=== PATIENT | male | born 1955 | race Caucasian/White ===

== ENCOUNTER 2022-06-15 14:48 | Outpatient (CLI) | payer MEDICARE, SELFPAY ==
[2022-06-15 16:03] LABS: Prostate Specific Antigen 1.5 ng/mL (< OR = 4.0)
== END 2022-06-15 14:49 | disposition home or self-care (01) ==
LOC: ANHLAB 14:58
PROVIDERS: PCP Hospitalist; Visit Provider Radiology Radiation Oncology
DX: Z85.46 Personal history of malignant neoplasm of prostate (principal)
CPT/HCPCS: 36415; 84153

== ENCOUNTER 2023-10-25 07:52 | Outpatient (CLI) | payer MEDICARE, SELFPAY ==
[2023-10-25 08:46] LABS: Basophils Absolute Auto 0.1 K/mm3 (0.0-0.1); Basophils Percent Auto 0.8 % (0.2-1.2); Eosinophils Absolute Auto 0.1 K/mm3 (0-0.3); Eosinophils Percent Auto 2.1 % (0-4.4); Hematocrit 43.6 % (42.0-52.0); Hemoglobin 14.3 g/dL (14.0-18.0); Immature Granulocyte Absolute 0.02 K/mm3 (0.00-0.031); Immature Granulocyte Percent A 0.3 % (0-0.5); Lymphocytes Percent Auto 22.9 % (18.3-44.2); Mean Corpuscular HGB Conc 32.8 g/dl (32-36); Mean Corpuscular Hemoglobin 28.4 pg (26-34); Mean Corpuscular Volume 86.7 fl (80-100); Mean Platelet Volume 9.9 fl (7.4-10.4); Monocytes Absolute Auto 0.6 K/mm3 (0.1-0.6); Monocytes Percent Auto 9.8 % (2.6-8.5); Neutrophils Absolute Auto 3.9 K/mm3 (1.3-6.7); Neutrophils Percent Auto 64.1 % (45.5-73.1); Platelet Count Result 299 k/mm3 (150-375); Red Blood Count 5.03 M/mm3 (4.6-6.20); Red Cell Distribution Width 13.7 % (11.5-14.5); White Blood Count 6.1 K/mm3 (4.5-10.0)
[2023-10-25 09:00] LABS: Alanine Aminotransferase 14 U/L (6-50); Albumin Level 4.2 g/dL (3.5-5.1); Alkaline Phosphatase 67 U/L (38-126); Anion Gap 7 mmol/L (4-12); Aspartate Amino Transferase 31 U/L (17-59); Bilirubin,Total 0.6 mg/dL (0.2-1.3); Blood Urea Nitrogen 17 mg/dL (9-20); Calcium 9.1 mg/dL (8.4-10.2); Carbon Dioxide 25 mmol/L (22-30); Chloride 107 mmol/L (98-107); Cholesterol 209 mg/dL (0-200); Estimated Glomerular Filt Rate > 60; Glucose 92 mg/dL (65-110); HDL Direct 36 mg/dL; Potassium 4.1 mmol/L (3.4-5.0); Sodium 139 mmol/L (137-145); Triglycerides 73 mg/dL (<150)
[2023-10-25 09:11] LABS: LDL Cholesterol Direct 146 mg/dL
[2023-10-25 09:30] LABS: Prostate Specific Antigen 0.9 ng/mL (< OR = 4.0)
[2023-10-28 12:53] LABS: TSH QUEST 1.91 mIU/L (0.40-4.50)
== END 2023-10-25 07:53 | disposition home or self-care (01) ==
PROVIDERS: PCP Family Medicine Sports Medicine; Visit Provider Family Medicine Sports Medicine
DX: E78.5 Hyperlipidemia, unspecified (principal); K62.7 Radiation proctitis; Z85.46 Personal history of malignant neoplasm of prostate
CPT/HCPCS: 36415; 80053; 80061; 84153; 84481; 85025; 86376

== ENCOUNTER 2024-03-30 07:04 | Outpatient (CLI) | payer MEDICARE, SELFPAY ==
[2024-03-30 08:27] LABS: Prostate Specific Antigen 0.9 ng/mL (< OR = 4.0)
== END 2024-03-30 07:05 | disposition home or self-care (01) ==
PROVIDERS: PCP Family Medicine Sports Medicine; Visit Provider Radiology Radiation Oncology
DX: Z85.46 Personal history of malignant neoplasm of prostate (principal)
CPT/HCPCS: 36415; 84153

== ENCOUNTER 2024-08-11 11:26 | Outpatient (CLI) | payer MEDICARE, SELFPAY ==
--- OUTSIDE RECORDS SUMMARY | 2024-08-11 12:09 | XMS_ITS | Referral Summary ---
Author Organization [facility] Address [address] [facility] [place] [address] Care Team Providers Care Credit Director Name Role Phone Bella Chopra MD Primary Care Provider Source Comments [facility],non-owned Affiliates and Associated Physician Practices is amultiple site organization consisting of ambulatory clinics and hospital sitesin [place], [place] and [place]. This disclosure is being madepursuant to the Care Everywhere program and may not contain all information available regarding this patient. Last updated 18.[facility] Encounters Date Type Department Care Team Description 07/23/2024 Travel 07/23/2024 10:00 AM SURGICAL SERVICES ASSISTANT Office Visit [facility] Medical [facility] - Family Medicine [address] [phone] Bella Chopra MD Medicare annual wellness visit, subsequent (Primary Dx); Healthcare maintenance; Right inguinal hernia; Elevated BP without diagnosis of hypertension; History of prostate cancer from Last 3 Months Allergies No known active allergies Medications * Be aware that medications may not be up to date on this document. Alwaysverify current medications with the patient. Medication Sig Dispensed Refills Start Date End Date Status calcium polycarbophil (Fibercon) 625 MG tablet Take 1 (one) tablet by mouth Chase Active triamcinolone acetonide (Kenalog) 0.1 % cream Apply to affected area 2 times daily 06/22/2024 Active Active Problems Problem Noted Date Diagnosed Date Adverse effect of radiation 07/23/2024 Malignant neoplasm of prostate 07/23/2024 Anal itching 04/08/2024 Right groin pain 04/08/2024 Dyslipidemia 11/05/2022 Chronic radiation proctitis 06/21/2022 Overview (07/23/2024): Occasional bright red blood mixed in with stool, not progressive. History of hormone therapy 12/20/2021 Overview (07/23/2024): Short-term ADT with leuprolide 45 mg injection February 2014. History of therapeutic radiation 10/20/2018 Overview (07/23/2024): Prostate only radiotherapy, 79.20 Gy in 44 fractions, from 03/03/2014 thru 05/04/2014. 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 (FLUCELVAX QUADRIVALENT; 6MO+) (CCIIV4) 07/09/2019,05/12/2017 INFLUENZA VACCINE, HIGH-DOSE , QUADR. (FLUZONE HIGH-DOSE QUADRIVALENT; 65Y+), 0.7 ML (HD-IIV4) 04/12/2023,03/29/2022 INFLUENZA VACCINE, HIGH-DOSE , TRIV. (FLUZONE HIGH-DOSE TRIVALENT; 65Y+) (HD-IIV3) 04/28/2024 INFLUENZA VACCINE, QUADR. (F LUZONE; FLULAVAL; FLUARIX; AFLURIA QUADRIVALENT; 6MO+), 0.5 ML (IIV4) 04/27/2021,04/11/2020,03/31/2018,2015 INFLUENZA VACCINE, TRIV. (FL UZONE; FLULAVAL; FLUARIX; AFLURIA TRIVALENT; 6MO+), 0.5 ML (IIV3) 04/10/2015 PNEUMOCOCCAL PCV20 CONJ VAC IM 07/23/2022 RSV AREXVY 60YR+ 0.5ML 05/02/2023 TDAP (7yrs+) 06/07/2008 TDAP, HISTORIC VACCINE 04/12/2023,05/05/2020 ZOSTER VACCINE, LIVE 01/21/2017 Zoster Hzv Vacc Recombinant Inj Im 04/21/2018, Social History Tobacco Use Types Packs/Day Years Used Date Smoking Tobacco: Never Smokeless Tobacco: Never Tobacco Cessation:Counseling Given: No Alcohol Use Standard Drinks/Week Comments Yes 0 (1 standard drink = 0.6 oz pur e alcohol) less then 10 beers a year PHQ-2 Answer Date Recorded Patient Health Questionnaire-2 Score 0 07/23/2024 Sex and Gender Information Value Date Recorded Sex Assigned at Not on file Gender Identity Not on file Sexual Orientation Not on file Last Filed Vital Signs Vital Sign Reading Time Taken Comments Blood Pressure 128/86 07/23/2024 12:54 PM SURGICAL SERVICES ASSISTANT Pulse 82 07/23/2024 10:23 AM SURGICAL SERVICES ASSISTANT Temperature 36.3 ??C (97.3 ??F) 07/23/2024 10:[address] Respiratory Rate - - Oxygen Saturation 98% 07/23/2024 10:23 AM SURGICAL SERVICES ASSISTANT Inhaled Oxygen Concentration - - Weight 72.3 kg (159 lb 6.4 oz) 07/23/2024 10:23 AM SURGICAL SERVICES ASSISTANT Height 175.3 cm (5' 9 ) 07/23/2024 10:23 AM SURGICAL SERVICES ASSISTANT Body Mass Index 23.54 07/23/2024 10:23 AM SURGICAL SERVICES ASSISTANT Plan of Treatment Upcoming Encounters Date Type Department Care Team (Late st Contact Info) Description 07/26/2025 7:20 AM SURGICAL SERVICES ASSISTANT Office Visit [facility] Medical [facility] - Family Medicine [address] [phone] Bella Chopra MD [address] [place] [address] Procedures Procedure Name Priority Date/Time Associated Diagnosis Comments HEPATITIS C ANTIBODY W RFLX PCR Routine 08/03/2024 9:30 AM SURGICAL SERVICES ASSISTANT Healthcare maintenance TSH REFLEX FREE T4 Routine 08/03/2024 9: 30 AM SURGICAL SERVICES ASSISTANT Healthcare maintenance Elevated BP without diagnosis of hypertension LIPID PROFILE Routine 08/03/2024 9:30 AM SURGICAL SERVICES ASSISTANT Healthcare maintenance Elevated BP without diagnosis of hypertension COMPREHENSIVE METABOLIC PANEL Routine 08/03/2024 9:30 AM SURGICAL SERVICES ASSISTANT Healthcare maintenance Elevated BP without diagnosis of hypertension CBC W AUTO DIFFERENTIAL Routine 08/03/2024 9:30 AM SURGICAL SERVICES ASSISTANT Healthcare maintenance Elevated BP without diagnosis of hypertension from Last 3 Months Results * HEPATITIS C ANTIBODY W RFLX PCR (08/03/2024 9:30 AM SURGICAL SERVICES ASSISTANT) Hepatitis C Antibody Non Reactive Non Reactive [facility] INSURANCE BILL Comment: Performed at: ??01 - [address] ??[id number] Wireless Consultant: Tunde Carlson PhD, Phone: ??[phone] Interpretation Comment [facility] INSURANCE BILL Comment: Not infected with HCV unless early or acute infection is suspected (which may be delayed in an immunocompromised individual), or other evidence exists to indicate HCV infection. Blood BLOOD SPECIMEN / Unknown 08/03/2024 9:30 AM SURGICAL SERVICES ASSISTANT 08/03/2024 Narrative [facility] INSURANCE BILL - 08/04/2024 6:09 AM SURGICAL SERVICES ASSISTANT Performed at: ??[address] ??[id number] Wireless Consultant: Tunde Carlson PhD, Phone: ??[phone] Bella Chopra MD LAB - CHEMISTRY ORDERABLES [facility] INSURANCE BILL [address] [place] [address] * TSH REFLEX FREE T4 (08/03/2024 9:30 AM SURGICAL SERVICES ASSISTANT) TSH 2.080 0.450 - 4.500 uIU/mL [facility] INSURANCE BILL Blood BLOOD SPECIMEN / Unknown 08/03/2024 9:30 AM SURGICAL SERVICES ASSISTANT 08/03/2024 Narrative [facility] INSURANCE BILL - 08/04/2024 6:09 AM SURGICAL SERVICES ASSISTANT Performed at: ??01 - [facility] [place] [address] [place], [place] ??[id number] Wireless Consultant: Tunde Carlson PhD, Phone: ??[phone] Bella Chopra MD LAB - CHEMISTRY ORDERABLES [facility] INSURANCE BILL [address] [place] [address] * CBC WITH DIFFERENTIAL (08/03/2024 9:30 AM SURGICAL SERVICES ASSISTANT) WBC 7.2 3.4 - 10.8 x10E3/uL [facility] INSURANCE BILL RBC 5.24 4.14 - 5.80 x10E6/uL [facility] INSURANCE BILL Hemoglobin 14.4 13.0 - 17.7 g/dL [facility] INSURANCE BILL Hematocrit 44.7 37.5 - 51.0 % [facility] INSURANCE BILL MCV 85 79 - 97 fL [facility] INSURANCE BILL MCH 27.5 26.6 - 33.0 pg [facility] INSURANCE BILL MCHC 32.2 31.5 - 35.7 g/dL [facility] INSURANCE BILL RDW 14.0 11.6 - 15.4 % [facility] INSURANCE BILL Platelet Count 362 150 - 450 x10E3/uL [facility] INSURANCE BILL Granulocytes % 72 Not Estab. % [facility] INSURANCE BILL Lymphocytes % 18 Not Estab. % [facility] INSURANCE BILL Monocytes % 8 Not Estab. % [facility] INSURANCE BILL Eosinophils % 1 Not Estab. % [facility] INSURANCE BILL Basophils % 1 Not Estab. % [facility] INSURANCE BILL Granulocytes Absolute 5.1 1.4 - 7.0 x10E3/uL [facility] INSURANCE BILL Lymphocytes Absolute 1.3 0.7 - 3.1 x10E3/uL [facility] INSURANCE BILL Monocytes Absolute 0.6 0.1 - 0.9 x10E3/uL [facility] INSURANCE BILL Eosinophils Absolute 0.1 0.0 - 0.4 x10E3/uL [facility] INSURANCE BILL Basophils Absolute 0.0 0.0 - 0.2 x10E3/uL [facility] INSURANCE BILL Immature Granulocytes 0 Not Estab. % [facility] INSURANCE BILL Immature Granulocytes Absolute 0.0 0.0 - 0.1 x10E3/uL [facility] INSURANCE BILL Blood BLOOD SPECIMEN / Unknown 08/03/2024 9:30 AM SURGICAL SERVICES ASSISTANT 08/03/2024 Narrative [facility] INSURANCE BILL - 08/04/2024 12:06 AM SURGICAL SERVICES ASSISTANT Performed at: ??01 - [facility] [address] [facility], [place], [place] ??[id number] Wireless Consultant: Tunde Carlson PhD, Phone: ??[phone] Bella Chopra MD LAB - HEMATOLOG Y ORDERABLES [facility] INSURANCE BILL [address] [place] [address] * COMPREHENSIVE METABOLIC PANEL (08/03/2024 9:30 AM SURGICAL SERVICES ASSISTANT) Glucose 89 70 - 99 mg/dL [facility] INSURANCE BILL BUN 15 8 - 27 mg/dL [facility] INSURANCE BILL Creatinine 0.88 0.76 - 1.27 mg/dL [facility] INSURANCE BILL eGFR by CKD-EPI 94 >59 mL/min/1.7 3 [facility] INSURANCE BILL BUN/Creatinine Ratio 17 10 - 24 [facility] INSURANCE BILL Sodium 140 134 - 144 mmol/L [facility] INSURANCE BILL Potassium 4.6 3.5 - 5.2 mmol/L [facility] INSURANCE BILL Chloride 104 96 - 106 mmol/L [facility] INSURANCE BILL CO2 24 20 - 29 mmol/L [facility] INSURANCE BILL Calcium 9.1 8.6 - 10.2 mg/dL [facility] INSURANCE BILL Protein Total 6.9 6.0 - 8.5 g/dL [facility] INSURANCE BILL Albumin 4.2 3.9 - 4.9 g/dL [facility] INSURANCE BILL Globulin Total 2.7 1.5 - 4.5 g/dL [facility] INSURANCE BILL Bilirubin Total 0.4 0.0 - 1.2 mg/dL [facility] INSURANCE BILL Alkaline Phosphatase 74 44 - 121 IU/L [facility] INSURANCE BILL AST 19 0 - 40 IU/L [facility] INSURANCE BILL ALT 11 0 - 44 IU/L [facility] INSURANCE BILL Blood BLOOD SPECIMEN / Unknown 08/03/2024 9:30 AM SURGICAL SERVICES ASSISTANT 08/03/2024 Narrative [facility] INSURANCE BILL - 08/04/2024 6:09 AM SURGICAL SERVICES ASSISTANT Performed at: ??01 - [facility] [address] ??[id number] Wireless Consultant: Tunde Carlson PhD, Phone: ??[phone] Bella Chopra MD LAB - CHEMISTRY ORDERABLES Performing Organization Address City/[facility] Co de Phone Number [facility] INSURANCE BILL [address] [place] [address] * (ABNORMAL) LIPID PROFILE (08/03/2024 9:30 AM SURGICAL SERVICES ASSISTANT) Cholesterol 193 100 - 199 mg/dL [facility] INSURANCE BILL Triglycerides 57 0 - 149 mg/dL [facility] INSURANCE BILL HDL Cholesterol 44 >39 mg/dL [facility] INSURANCE BILL VLDL Calculated 11 5 - 40 mg/dL [facility] INSURANCE BILL LDL Calculated 138(H) 0 - 99 mg/dL [facility] INSURANCE BILL Blood BLOOD SPECIMEN / Unknown 08/03/2024 9:30 AM SURGICAL SERVICES ASSISTANT 08/03/2024 Narrative [facility] INSURANCE BILL - 08/04/2024 6:09 AM SURGICAL SERVICES ASSISTANT Performed at: ??01 - [facility] [address] ??[id number] Wireless Consultant: Tunde Carlson PhD, Phone: ??[phone] Bella Chopra MD LAB - CHEMISTRY ORDERABLES Performing Organization Address City/[facility] Co de Phone Number [facility] INSURANCE BILL [address] [place] [address] from Last 3 Months Care Teams Credit Director Relationship Specialty Start Date End Date Bella Chopra MD [address] [place] [address] PCP - General Internal Medicine 07/23/24
--- OUTSIDE RECORDS SUMMARY | 2024-08-11 12:09 | XMS_ITS | Referral Summary ---
Author Organization [facility] Address [address] [place] [address] Care Team Providers Care Red Cap Name Role Phone Maricel Saucedo MD Primary Care Provider Alicia DUBON MD, Bernardo Edmond Unavailable + Encounters Date Type Department Care Team Description 06/22/2024 5:15 PM FLIGHT STEWARD Office Visit [facility] at [address] [phone] Alesha Stevens NP Rash and nonspecific skin eruption (Primary Dx); Right groin pain from Last 3 Months Allergies No known active allergies Medications erythromycin (ILOTYCIN) ophthalmic ointmentIndicat ions:Hordeolum externum of left lower eyelid Apply to left eye 2 (two) times a day For 1 week as needed for recurrent stye. To eye lid margin 3.5 g 1 4 Active Additional Information Patient not taking.Reported on 06/22/2024 triamcinolone (KENALOG) 0.1 % creamIndication s:skin rash Apply topically 2 (two) times a day for 10 days 30 g 4 Active Active Problems Problem Noted Date Diagnosed Date Dyslipidemia 11/05/2022 Assessment & Plan (11/05/2022 5:08 PM CDT): Most recent LDL was near optimal; patient not currently taking any statin therapy Recheck lipids today; if within normal limits, continue to encourage low-fat high-fiber diet Chronic radiation proctitis 06/21/2022 05/0 07/2022 Overview (11/05/2022): Occasional bright red blood mixed in with stool, not progressive. 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 Fluoxetine and BuSpar as previously prescribed. Pt does not desire changing medications D/T transient dizziness with anxiety, I would like to give the medication little bit more time to verify effectiveness. RTC as scheduled next month and call in the interim with any additional questions or concerns RUBY (generalized anxiety disorder) 09/23/2018 11/02/2020 Assessment & Plan (09/23/2018 12:17 PM CDT): Nursing only mild improvement sx. Consulting been 11 days since starting medication. Pt was advised that often takes 2-3 weeks to notice a change in psychosomatic disorders with such medication. We discussed changing them, he declined at this time. I did encourage him to try half a tab BuSpar as this could be causing some of his transient dizziness throughout the day. RTC as scheduled here next month, or sooner with any acute concerns regarding medication management Evaluation by medical service required 09/23/2018 09/23/2018 Assessment & Plan (09/23/2018 12:16 PM CDT): FMLA forms filled out today office along Pt to be off from 09/12/2018 to 11/11/2018 until following up here in the office with Dr. Walker. This is secondary to to reactive depression RUBY. Tobacco smoking behavior - finding 11/17/2014 01/03/2017 Overview (10/12/2016): History of smoking Elevated prostate specific antigen (PSA) 01/04/2011 01/30/2018 Immunizations Name Administration Dates Next Due Flucelvax Influenza Quad 07/09/2019,05/12/2017 Influenza, Quadrivalent, Mai l Culture-based MDCK, Preservative Free, Antibiotic Free, Intramuscular 07/09/2019,05/12/2017 Influenza, Quadrivalent, Hig h Dose, Preservative Free, Intrr 04/12/2023,03/29/2022 Influenza, Quadrivalent, Spl it, Preservative Free, Intramuscular 04/27/2021,04/11/2020,03/31/2018,04/10 Influenza, Trivalent, Preser vative Free, Intramuscular 04/10/2015 Influenza, Unspecified 04/11/2020,05/05/2018, Pfizer SARS-CoV-2 Monovalent Vaccination (12+ Yrs) PURPLE 10/01/2020,09/08/2020 Pneumococcal Conjugate Pcv20 07/23/2022 RSV Vaccine, Pref, Recombina nt, Subunit, Adjuvanted, PF, IM (Arexvy) 05/02/2023 Tdap 04/12/2023,05/05/2020,06/07/2008 ZOSTER LIVE 01/22/2017 ZOSTER Recombinant 04/22/2018,02/14/2018 Social History Tobacco Use Types Packs/Day Years Used Date Smoking Tobacco: Former Cigarettes 0.8 27 1 980 - 2006 Smokeless Tobacco: Never Alcohol Use Standard Drinks/Week Comments No 0 (1 standard drink = 0.6 oz pur e alcohol) AUDIT-C Answer Date Recorded Q1: How often do you have a drink containing alcohol? Never 11/05/2022 Q2: How many drinks containi ng alcohol do you have on a typical day when you are drinking? Patient does not drink Q3: How often do you have si x or more drinks on one occasion? Never 11/05/2022 PHQ-2 Answer Date Recorded PHQ-2 Total Score (If total score is 3 or more points, staff should administer the PHQ-9) 0 10/10/2023 Sex and Gender Information Value Date Recorded Sex Assigned at Not on file Legal Sex Male 10:22 AM FLIGHT STEWARD Gender Identity Not on file Sexual Orientation Not on file Last Filed Vital Signs Vital Sign Reading Time Taken Comments Blood Pressure 138/90 06/22/2024 5:11 PM FLIGHT STEWARD Pulse 64 06/22/2024 5:11 PM FLIGHT STEWARD Temperature 36.6 ??C (97.8 ??F) 06/22/2024 5:11 PM CS T Respiratory Rate 20 06/22/2024 5:11 PM FLIGHT STEWARD Oxygen Saturation 99% 06/22/2024 5:11 PM FLIGHT STEWARD Inhaled Oxygen Concentration - - Weight 72.8 kg (160 lb 9.6 oz) 06/22/2024 5:11 P M FLIGHT STEWARD Height 175.3 cm (5' 9 ) 06/22/2024 5:11 PM FLIGHT STEWARD Body Mass Index 23.72 06/22/2024 5:11 PM FLIGHT STEWARD Plan of Treatment Not on file Procedures Procedure Name Priority Date/Time Associated Diagnosis Comments HEPATITIS C ANTIBODY Routine 11/22/2022 7:24 AM CDT HM COLONOSCOPY Routine 02/02/2022 PSA SCREEN Routine 10/19/2021 7:08 AM CDT Benign prostatic hyperplasia, unspecified whether lower urinary tract symptoms present from Last 3 Months or Most Recently Relevant to Health Maintenance Results * Hepatitis C antibody (11/22/2022 7:24 AM CDT) Hep C Ab NON-REACTI VE NON-REACT XIMENA [facility] SIGNAL TO CUT-OFF 0.11 <1.00 [facility] Comment: HCV antibody was non-reactive. There is no laboratory evidence of HCV infection. In most cases, no further action is required. However, if recent HCV exposure is suspected, a test for HCV RNA (test code 28706) is suggested. For additional information please refer to http://education.DigitalTangible/faq/TAP68f6 (This link is being provided for informational/ educational purposes only.) 11/22/2022 7:24 AM CDT 11/22/2022 7:27 AM CDT Narrative [facility] - 11/23/2022 6:23 AM CDT FASTING:YES FASTING: YES Petar Mckeon MD LAB MICROBIOLOGY - [facility] ORDERABLES Final Result Performing Organization Address [facility] Co de Phone Number [facility] [address] [place] [address] * COLONOSCOPY (02/02/2022) Scribed Colonoscopy Normal Comment:see media Mike Provider HEALTH MAINTENANCE Final Result * PSA screen (10/19/2021 7:08 AM CDT) PSA 0.39 < OR = 4.00 ng/mL [facility] Comment: The total PSA value from this assay system is standardized against the WHO standard. The test result will be approximately 20% lower when compared to the equimolar-standardized total PSA (Lidia Luz). Comparison of serial PSA results should be interpreted with this fact in mind. This test was performed using the Siemens chemiluminescent method. Values obtained from different assay methods cannot be used interchangeably. PSA levels, regardless of value, should not be interpreted as absolute evidence of the presence or absence of disease. Blood specimen (specimen) 10/19/2021 7:08 AM CDT 10/19/2021 7:09 AM CDT Bernardo Walker MD LAB BLOOD ORDERABLES Final Res ult Performing Organization Address City/[facility]/ZIP Co de Phone Number [facility] [address] [place] [address] from Last 3 Months or Most Recently Relevant to Health Maintenance Insurance BL CHOICE PRF PPO CT MEDICARE SOLUTIONS MEDICARE SOLUTIONS Care Teams Red Cap Relationship Specialty Start Date End Date Maricel Saucedo MD PCP - General Family Medicine 10/10/23 Bernardo Vargas III, MD [address] [place] [address] Radiation Oncology 10/10/23
--- OUTSIDE RECORDS SUMMARY | 2024-08-11 12:09 | XMS_ITS | Patient Health Summary ---
Author Organization [facility] Address [address] [place] [address] Care Team Providers Care Hand Wrapper Operator Name Role Phone Bella Chopra MD Primary Care Provider Note from [facility],non-owned Affiliates and Associated Physician Practices is amultiple site organization consisting of ambulatory clinics and hospital sitesin [place], [place], [place] and [place]. This disclosure is being madepursuant to the Care Everywhere program and may not contain all information available regarding this patient. Last updated 18.[facility] Allergies No known active allergies Medications * Be aware that medications may not be up to date on this document. Alwaysverify current medications with the patient. 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 (FLUCELVAX QUADRIVALENT; 6MO+) (CCIIV4)(Given 07/09/2019, 05/12/2017) * INFLUENZA VACCINE, HIGH-DOSE, QUADR. (FLUZONE HIGH-DOSE QUADRIVALENT; 65Y+), 0.7 ML (HD-IIV4)(Given 04/12/2023, 03/29/2022) * INFLUENZA VACCINE, HIGH-DOSE, TRIV. (FLUZONE HIGH-DOSE TRIVALENT; 65Y+) (HD-IIV3)(Given 04/28/2024) * INFLUENZA VACCINE, QUADR. (FLUZONE; FLULAVAL; FLUARIX; AFLURIA QUADRIVALENT; 6MO+), 0.5 ML (IIV4)(Given 04/27/2021, 04/11/2020, 03/31/2018, 04/10/2016) * INFLUENZA VACCINE, TRIV. (FLUZONE; FLULAVAL; FLUARIX; AFLURIA TRIVALENT; 6MO+), 0.5 ML (IIV3)(Given 04/10/2015) * PNEUMOCOCCAL PCV20 CONJ VAC IM(Given 07/23/2022) * RSV AREXVY 60YR+ 0.5ML(Given 05/02/2023) * TDAP (7yrs+)(Given 06/07/2008) * TDAP, HISTORIC VACCINE(Given 04/12/2023, 05/05/2020) * ZOSTER VACCINE, LIVE(Given 01/21/2017) * Zoster Hzv Vacc Recombinant Inj Im(Given 04/21/2018, 02/13/2018) Social History Tobacco Use Types Packs/Day Years [...] Comments Blood Pressure 128/86 07/23/2024 12:54 PM RAILROAD OPERATOR Pulse 82 07/23/2024 10:23 AM RAILROAD OPERATOR Temperature 36.3 ??C (97.3 ??F) 07/23/2024 10:[address] Respiratory Rate - - Oxygen Saturation 98% 07/23/2024 10:23 AM RAILROAD OPERATOR Inhaled Oxygen Concentration - - Weight 72.3 kg (159 lb 6.4 oz) 07/23/2024 10:23 AM RAILROAD OPERATOR Height 175.3 cm (5' 9 ) 07/23/2024 10:23 AM RAILROAD OPERATOR Body Mass Index 23.54 07/23/2024 10:23 AM RAILROAD OPERATOR Procedures * HEPATITIS C ANTIBODY W RFLX PCR(Performed 08/03/2024) Performed for Healthcare maintenance * TSH REFLEX FREE T4(Performed 08/03/2024) Performed for Healthcare maintenance, Elevated BP without diagnosis of hypertension * LIPID PROFILE(Performed 08/03/2024) Performed for Healthcare maintenance, Elevated BP without diagnosis of hypertension * COMPREHENSIVE METABOLIC PANEL(Performed 08/03/2024) Performed for Healthcare maintenance, Elevated BP without diagnosis of hypertension * CBC W AUTO DIFFERENTIAL(Performed 08/03/2024) Performed for Healthcare maintenance, Elevated BP without diagnosis of hypertension Results * HEPATITIS C ANTIBODY W RFLX PCR (08/03/2024 9:30 AM RAILROAD OPERATOR) Hepatitis C Antibody Non Reactive Non Reactive [facility] INSURANCE BILL Comment: Performed at: ??01 - [address] ??[id number] Door To Door Salesperson: Tunde Carlson PhD, Phone: ??[phone] Interpretation Comment [facility] INSURANCE BILL Comment: Not infected with HCV unless early or acute infection is suspected (which may be delayed in an immunocompromised individual), or other evidence exists to indicate HCV infection. Blood BLOOD SPECIMEN / Unknown 08/03/2024 9:30 AM RAILROAD OPERATOR 08/03/2024 Narrative [facility] INSURANCE BILL - 08/04/2024 6:09 AM RAILROAD OPERATOR Performed at: ??01 - [address] ??[id number] Door To Door Salesperson: Tunde Carlson PhD, Phone: ??[phone] Bella Chopra MD LAB - CHEMISTRY ORDERABLES [facility] INSURANCE BILL [address] [place] [address] * TSH REFLEX FREE T4 (08/03/2024 9:30 AM RAILROAD OPERATOR) Pathologist [facility] TSH 2.080 0.450 - 4.500 uIU/mL [facility] INSURANCE BILL Blood BLOOD SPECIMEN / Unknown 08/03/2024 9:30 AM RAILROAD OPERATOR 08/03/2024 Narrative [facility] INSURANCE BILL - 08/04/2024 6:09 AM RAILROAD OPERATOR Performed at: ?? - [facility] ??[id number] Door To Door Salesperson: Tunde Carlson PhD, Phone: ??[phone] Bella Chopra MD LAB - CHEMISTRY ORDERABLES Performing Organization Address City/[facility]/ZIP Co de Phone Number [facility] INSURANCE BILL [address] [place] [address] * CBC WITH DIFFERENTIAL (08/03/2024 9:30 AM RAILROAD OPERATOR) Pathologist [facility] WBC 7.2 3.4 - 10.8 x10E3/uL [facility] [...] BLOOD SPECIMEN / Unknown 08/03/2024 9:30 AM RAILROAD OPERATOR 08/03/2024 Narrative [facility] INSURANCE BILL - 08/04/2024 12:06 AM RAILROAD OPERATOR Performed at: ??01 - [facility] [address], [place] ??[id number] Door To Door Salesperson: Tunde Carlson PhD, Phone: ??[phone] Bella Chopra MD LAB - HEMATOLOG Y ORDERABLES [facility] INSURANCE BILL [address] [place] [address] * COMPREHENSIVE METABOLIC PANEL (08/03/2024 9:30 AM RAILROAD OPERATOR) Glucose 89 70 - 99 mg/dL [facility] [...] BLOOD SPECIMEN / Unknown 08/03/2024 9:30 AM RAILROAD OPERATOR 08/03/2024 Narrative [facility] INSURANCE BILL - 08/04/2024 6:09 AM RAILROAD OPERATOR Performed at: ?? - [address] ??[id number] Door To Door Salesperson: Tunde Carlson PhD, Phone: ??[phone] Bella Chopra MD LAB - CHEMISTRY ORDERABLES Performing Organization Address [facility] de Phone Number [facility] INSURANCE BILL [address] [place] [address] * (ABNORMAL) LIPID PROFILE (08/03/2024 9:30 AM RAILROAD OPERATOR) Cholesterol 193 100 - 199 mg/dL [facility] INSURANCE BILL Triglycerides 57 0 - 149 mg/dL [facility] INSURANCE BILL HDL Cholesterol 44 >39 mg/dL [facility] INSURANCE BILL VLDL Calculated 11 5 - 40 mg/dL [facility] INSURANCE BILL LDL Calculated 138(H) 0 - 99 mg/dL [facility] INSURANCE BILL Blood BLOOD SPECIMEN / Unknown 08/03/2024 9:30 AM RAILROAD OPERATOR 08/03/2024 Narrative [facility] INSURANCE BILL - 08/04/2024 6:09 AM RAILROAD OPERATOR Performed at: ?? - [facility] ??[id number] Door To Door Salesperson: Tunde Carlson PhD, Phone: ??[phone] Bella Chopra MD LAB - CHEMISTRY ORDERABLES Performing Organization Address [facility] de Phone Number [facility] INSURANCE BILL [address] [place] [address] Care Teams Hand Wrapper Operator Relationship Specialty Start Date End Date Bella Chopra MD [address] [place] [address] PCP - General Internal Medicine 07/23/24
--- OUTSIDE RECORDS SUMMARY | 2024-08-11 12:09 | XMS_ITS | Clinical Summary ---
Author Organization [facility] Address [address] [place] [address] Phone Care Team Providers Care Daub Color Mixer Name Role Phone Bernardo Vargas MD Unavailable [phone] Janusz Nieot MD Unavailable Petar Mckeon MD Primary Care Provider [phone] Allergies No known active allergies Medications Calcium Polycarbophil (FIBER-CAPS PO) Take by mouth. Active Active Problems Problem Noted Date Diagnosed Date Right groin pain 04/08/2024 Anal itching 04/08/2024 Chronic radiation proctitis 06/21/2022 Overview (06/21/2022): Occasional bright red blood mixed in with stool, not progressive. History of prostate cancer 12/20/2021 Overview (12/20/2021): In 2010 he was referred to Urology for a rising PSA of 4.0. Prostate biopsies at [facility] 01/15/2011 revealed 2/6 cores on the left involved with [place] 3 + 3 adenocarcinoma involving approximately 5% of the core tissue. All the tissue on the right was benign. MRITA findings at that time were not available but it was felt he most likely had T1c disease. At that time for various personal reasons he did not follow-up with regards to his prostate cancer until 2013. PSA 11/11/2013 was 5.78. Prostate biopsies were repeated 01/20/2014 and the right mid core biopsy was involved 5% with Benja 3 + 3 with the remaining 5 right-sided biopsies benign. All 6 left biopsies were involved with a combination of Benja 3 + 3 and Benja 3 + 4 adenocarcinoma involving between 15% to 85% of each biopsy core. By MIRAT he had T2 disease. He received short-term ADT with a leuprolide 45 mg injection February 2014. He began prostate only radiotherapy 03/03/2014 and completed 05/04/2014 receiving 79.20 Gy in 44 fractions. History of therapeutic radiation 12/20/2021 Overview (12/20/2021): Prostate only radiotherapy, 79.20 Gy in 44 fractions, from 03/03/2014 thru 05/04/2014. History of hormone therapy 12/20/2021 Overview (12/20/2021): Short-term ADT with leuprolide 45 mg injection February 2014. Adverse effect of radiation Family History Medical History Relation Name Comments High Cholesterol Brother 1 Hypertension Brother 1 No Known Problems Brother 2 Heart Attack Father Heart Surgery Father Prostate Cancer Father No Known Problems Maternal Grandfather No Known Problems Maternal Grandmother No Known Problems Mother No Known Problems Paternal Grandfather Cancer Paternal Grandmother Rheumatoid Arthritis Sister 1 No Known Problems Sister 2 No Known Problems Son Relation Name Status Comments Brother 1 Alive Brother 2 Alive Father Maternal Grandfather Maternal Grandmother Mother Alive Paternal Grandfather Paternal Grandmother Sister 1 Alive Sister 2 Alive Son Alive Social History Tobacco Use Types Packs/Day Years Used Date Smoking Tobacco: Former Cigarettes 0.5 20 0 12/20/1986 - 12/20/2006 Smokeless Tobacco: Never Tobacco Cessation:Counseling Given: Not Answered Alcohol Use Standard Drinks/Week Comments Not Currently 0 (1 standard drink = 0.6 oz pur e alcohol) once a month Sexually Active Control Partners Comments Not Currently Female Sex and Gender Information Value Date Recorded Sex Assigned at Not on file Legal Sex Male 7:41 PM CDT Gender Identity Not on file Sexual Orientation Not on file Last Filed Vital Signs Vital Sign Reading Time Taken Comments Blood Pressure 144/90 04/08/2024 9:01 AM CDT Pulse 57 04/08/2024 9:01 AM CDT Temperature 35.8 ??C (96.4 ??F) 04/08/2024 9:01 AM CD T Respiratory Rate 18 04/08/2024 9:01 AM CDT Oxygen Saturation 99% 04/08/2024 9:01 AM CDT Inhaled Oxygen Concentration - - Weight 71.2 kg (157 lb) 04/08/2024 9:01 AM CDT Height 175.3 cm (5' 9 ) 04/08/2024 9:01 AM CDT Body Mass Index 23.18 04/08/2024 9:01 AM CDT Plan of Treatment Upcoming Encounters Date Type Department Care Team (Late st Contact Info) Description 10/08/2024 9:00 AM CDT Office Visit [facility] Oncology Services [address] [place] [id number] Bernardo Vargas MD [address] [place], [place] [id number] Discharge Disposition: Discharged to home or Selfcare Health Maintenance Due Date Last Done Comments Hepatitis C Virus (HCV) Screening 1955 Cologuard 2006 Immunochemical Fecal Occult Blood 2006 AAA Screening Ultrasound 2021 Influenza Immunization (#1) 2024 10/0 12/2022, 03/29/2022, 04/27/2021, Additional history exists SARS-COV-2 Immunization () 03/08/2024 05/02/2023, 03/29/2022, 11/17/2021, Additional history exists Colonoscopy 02/01/2027 02/01/2022, 02/01/2022 Colorectal Cancer Screening 02/01/2027 02/01/2022 Zoster Immunization Completed 04/21/2018, 02/13/2018, 01/21/2017 Pneumococcal Immunization (50+ years) Completed 07/23/2022 Pneumococcal Immunization Combined Discontinued 07/23/2022 PSA Discussion Completed 04/01/2023, 09/06, 06/15/2022, Additional history exists DTaP/Tdap/Td Immunization Discontinued 2022, 05/05/2020, 06/07/2008 TdaP Immunization Completed 04/12/2023, , 06/07/2008 Respiratory Syncytial Virus (RSV) Immunization (Adult) Completed 05/02/2023 Hepatitis B Immunization Aged Out No longer eligible based on patient's age to complete this topic Meningococcal Immunization (ACWY) Aged Out No longer eligible based on patient's age to complete this topic Rotavirus Immunization Aged Out No lo nger eligible based on patient's age to complete this topic Procedures Procedure Name Priority Date/Time Associated Diagnosis Comments PSA DIAGNOSTIC,TOTAL Routine 04/01/2023 11:20 AM CDT History of prostate cancer History of therapeutic radiation History of hormone therapy from Last 3 Months or Most Recently Relevant to Health Maintenance Results * PSA DIAGNOSTIC,TOTAL (04/01/2023 11:20 AM CDT) PSA, TOTAL (PROSTATIC SPECIFIC ANTIGEN) 0.44 <4.00 ng/mL 04/01/2023 1:16 PM CDT [facility] Blood Venipuncture / Unknown 04/01/2023 11:20 AM CDT 04/01/2023 12:06 PM CDT Narrative [facility] - 04/01/2023 1:16 PM CDT PSA NOTE: The PSA value should be used in conjunction with information available from clinical evaluation and other diagnostic procedures. The WEB ADMINISTRATOR Total PSA assay is a Chemiluminescent Microparticle Immunoassay (CMIA) for the quantitative determination of total PSA (both free PSA and PSA complexed to [id number]) in human serum. us Bernardo Vargas MD CHEMISTRY ORDERABLES Fi nal Result [facility] [address] [place] [address] from Last 3 Months or Most Recently Relevant to Health Maintenance Insurance MEDICARE C [facility] Care Teams Daub Color Mixer Relationship Specialty Start Date End Date Petar Mckeon MD [address] [place] [address] PCP - General Family Medicine 10/05/22 Bernardo Vargas MD [address] [place] [address] Consulting Physician Radiation Oncology 12/20/21 Janusz Nieto MD [address] [address] Consulting Physician Colon and Rectal Surgery 12/20/21
--- OUTSIDE RECORDS SUMMARY | 2024-08-11 12:09 | XMS_ITS | Clinical Summary ---
Author Organization [facility] Address [address] [place] [address] Care Team Providers Care Chief Of Hospital Medicine Name Role Phone Maricel Saucedo MD Primary Care Provider Alicia DUBON MD, Bernardo Edmond Unavailable + Allergies No known active allergies Medications erythromycin [...] Date Resolved Date Reactive depression 09/23/2018 11/03/19 21 Assessment & Plan (09/23/2018 12:18 PM CDT): [...] Elevated prostate specific antigen (PSA) 01/04/2011 01/30/2018 Encounters Date Type Department Care Team Description 06/22/2024 5:15 PM [employer] Office Visit [facility] at [address] [address] Alesha Stevens, ALEKSANDER Rash and nonspecific skin eruption (Primary Dx); Right groin pain from Last 3 Months Immunizations Name Administration Dates Next Due Flucelvax [...] 04/12/2023,05/05/2020,06/07/2008 ZOSTER LIVE 01/22/2017 ZOSTER Recombinant 04/22/2018,02/14/2018 Surgical History Surgery Date Site/Laterality Comments VASECTOMY 07/08/1989 - 07/07/1990 Medical History Medical History Date Comments Hyperlipidemia Hyperlipidemia Prostate cancer (HCC) Varicella Family History Medical History Relation Name Comments Heart attack Father Myocardial infa rction; Prostate cancer Father Colon cancer Neg Hx Relation Name Status Comments Brother 1 Alive Brother 2 Father Mother Alive Sister 1 Alive Sister 2 Alive Social History Tobacco Use Types Packs/Day Years Used Date Smoking Tobacco: Former Cigarettes 0.8 27 1 - 2006 Smokeless Tobacco: Never Alcohol Use [...] on file Legal Sex Male 10:22 AM [employer] Gender Identity Not on file Sexual Orientation Not on file Obstetrics History Last Filed Vital Signs Vital Sign Reading Time Taken Comments Blood Pressure 138/90 06/22/2024 5:11 PM [employer] Pulse 64 06/22/2024 5:11 PM [employer] Temperature 36.6 ??C (97.8 ??F) 06/22/2024 5:11 PM CS T Respiratory Rate 20 06/22/2024 5:11 PM [employer] Oxygen Saturation 99% 06/22/2024 5:11 PM [employer] Inhaled Oxygen Concentration - - Weight 72.8 kg (160 lb 9.6 oz) 06/22/2024 5:11 P M [employer] Height 175.3 cm (5' 9 ) 06/22/2024 5:11 PM [employer] Body Mass Index 23.72 06/22/2024 5:11 PM [employer] Plan of Treatment Health Maintenance Due Date Last Done Comments Hepatitis B Screening 1973 Covid-19 Vaccine (2023-08 5 season) 2024 05/02/2023, 03/29/2022, 11/17/2021, Additional history exists Prostate Cancer Screening-PSA 04/01/2024, 04/01/2022, 10/19/2021, Additional history exists Depression Screening 10/09/2024 10/10/2023, 11/05/2022, 11/02/2021, Additional history exists Fall Risk Assessment 10/09/2024 10/10/2023, 11/05/2022, 11/02/2021, Additional history exists Well Visit 65+ 10/09/2024 10/10/2023, 10/07, 11/01/2020, Additional history exists Colon Cancer Screening-Colonoscopy 02/02/2027 02/02/2022, 12/10/2013, 12/10/2013 DTaP/Tdap/Td Vaccine (4 - Td or Tdap) 04/12/2033 04/12/2023, 05/05/2020, 06/07/2008 Zoster Vaccine Completed 04/22/2018, 02/05, 01/22/2017 Colon Cancer Screening-CT Colonography Discontinued 02/02/2022, 12/10/2013, 12/10/2013 Colon Cancer Screening-DNA Stool Discontinued 02/02/2022, 12/10/2013, 12/10/2013 Colon Cancer Screening-FIT Discontinued 02/02, 12/10/2013, 12/10/2013 Colon Cancer Screening-Sigmoidoscopy Discontinued 02/02/2022, 12/10/2013, 12/10/2013 Pneumococcal vaccine 65+ Completed 07/23/2022 Abdominal Aortic Aneurysm (A AA) Screen Completed 11/05/2022 Hepatitis C Screening Completed 11/22/2022 Influenza Vaccine Completed 04/28/2024, , 03/29/2022, Additional history exists Procedures Procedure Name Priority Date/Time Associated Diagnosis [...] a test for HCV RNA (test code 70957) is suggested. For additional information please refer to http://education.Eyelation/faq/MHH93d2 (This link is being provided for informational/ educational purposes only.) 11/22/2022 7:24 AM CDT 11/22/2022 7:27 AM CDT Narrative [facility] - 11/23/2022 6:23 AM CDT FASTING:YES FASTING: YES Petar Mckeon MD LAB MICROBIOLOGY - GENERA L ORDERABLES Final Result [facility] [address] [place] [address] * COLONOSCOPY (02/02/2022) Scribed Colonoscopy Normal Comment:see media Historical Provider HEALTH MAINTENANCE Final Result * PSA screen (10/19/2021 7:08 AM CDT) PSA 0.39 < OR = 4.00 ng/mL [facility] Comment: The total PSA value from this assay system is standardized against the WHO standard. The test result will be approximately 20% lower when compared to the equimolar-standardized total PSA (Lidia Eldridge). Comparison of serial PSA results should be [...] MD LAB BLOOD ORDERABLES Final Res ult [facility] [address] [address] [address] from Last 3 Months or Most Recently Relevant to Health Maintenance Insurance [place] MED[place] [facility] MEDICARE Address: [facility] [address] [place] [address] MEDICARE [facility] [facility] MEDICARE Address: [address] [address] [place] [address] Care Teams Chief Of Hospital Medicine Relationship Specialty Start Date End Date Maricel Saucedo MD PCP - General Family Medicine 10/10/23 Bernardo Vargas III, MD [address] [place] [address] Radiation Oncology 10/10/23
--- OUTSIDE RECORDS SUMMARY | 2024-08-11 12:09 | XMS_ITS | Clinical Summary ---
Author Organization [facility] Address [address] [facility] [place] [address] Care Team Providers Care Network Relay Tester Name Role Phone Bella Chopra MD Primary Care Provider Source Comments [facility],non-owned Affiliates and Associated Physician Practices is amultiple site organization consisting of ambulatory clinics and hospital sitesin [place], [place], [place] and [place]. This disclosure is being madepursuant to the Care Everywhere program and may not contain all information available regarding this patient. Last updated 18.[facility] Allergies No known active allergies Medications * Be aware that medications may not be up to date on this document. Alwaysverify current medications with the patient. Medication Sig Dispensed Refills Start Date End Date Status calcium polycarbophil (Fibercon) 625 MG tablet Take 1 (one) tablet by mouth Poweder Active triamcinolone acetonide (Kenalog) 0.1 % cream [...] prostate cancer 11/21/2013 Overview (07/23/2024): Prostate cancer Encounters Date Type Department Care Team Description 07/23/2024 10:00 AM ROBOTIC TECHNICIAN Office Visit [facility] Family Medicine [address] [facility], [address] [address] Bella Chopra MD Medicare annual wellness visit, subsequent (Primary Dx); Healthcare maintenance; Right inguinal hernia; Elevated BP without diagnosis of hypertension; History of prostate cancer 07/23/2024 Travel from Last 3 Months Immunizations Name Administration Dates Next Due COVID [...] Zoster Hzv Vacc Recombinant Inj Im 04/21/2018, Family History Medical History Relation Name Comments Hyperlipidemia Brother Hypertension Brother CAD (Coronary Artery Disease) Father Cancer - Prostate Father Atrial Fibrillation Mother with valeri ky valve Arthritis - Osteo Sister Relation Name Status Comments Brother Alive Father Mother Alive Sister Social History Tobacco Use Types Packs/Day Years [...] Comments Blood Pressure 128/86 07/23/2024 12:54 PM ROBOTIC TECHNICIAN Pulse 82 07/23/2024 10:23 AM ROBOTIC TECHNICIAN Temperature 36.3 ??C (97.3 ??F) 07/23/2024 10:[address] Respiratory Rate - - Oxygen Saturation 98% 07/23/2024 10:23 AM ROBOTIC TECHNICIAN Inhaled Oxygen Concentration - - Weight 72.3 kg (159 lb 6.4 oz) 07/23/2024 10:23 AM ROBOTIC TECHNICIAN Height 175.3 cm (5' 9 ) 07/23/2024 10:23 AM ROBOTIC TECHNICIAN Body Mass Index 23.54 07/23/2024 10:23 AM ROBOTIC TECHNICIAN Plan of Treatment Upcoming Encounters Date Type Department Care Team (Late st Contact Info) Description 07/26/2025 7:20 AM ROBOTIC TECHNICIAN Office Visit [facility] - Family Medicine [address] [place] [address] Bella Chopra MD [address] [place] [address] Health Maintenance Due Date Last Done Comments COLOGUARD (AGES 45-75) - COLON CA SCREENING 1955 COLON MONITORING 1956 COLONOSCOPY - COLON CA SCREENING 1956 CT COLONOGRAPHY - COLON CA SCREENING 1955 Colorectal Cancer Screening 1955 FIT - COLON CA SCREENING 1956 FLEX SIG - COLON CA SCREENING 1955 LIPID TESTING 08/03/2029 08/03/2024 DTAP/TDAP/TD VACCINES (4 - Td or Tdap) 04/12/2033 04/12/2023, 05/05/2020, 06/07/2008 ZOSTER VACCINE Completed 04/21/2018, 03/2018, 01/21/2017 PNEUMOCOCCAL VACCINE 50+ Completed 07/23/2022 Respiratory Syncytial Virus (RSV) Vaccine Pt: or over 60 yrs Completed 05/02/2023 COVID-19 VACCINE Completed 04/23/2024, , 03/29/2022, Additional history exists INFLUENZA VACCINE Completed 04/28/2024, , 03/29/2022, Additional history exists DEPRESSION SCREENING Completed 07/23/2024 MEDICARE AWV ? CALENDAR YEAR Completed 07/23/2024 HEPATITIS C SCREENING Completed 08/03/2024 HEPATITIS B VACCINE Aged Out No longe r eligible based on patient's age to complete this topic HIB VACCINE Aged Out No longer eligi ble based on patient's age to complete this topic HPV VACCINE Aged Out No longer eligi ble based on patient's age to complete this topic MENINGOCOCCAL (Group B) VACCINE Aged Out No longer eligible based on patient's age to complete this topic MENINGOCOCCAL VACCINE Aged Out No marlon romi eligible based on patient's age to complete this topic Procedures Procedure Name Priority Date/Time Associated Diagnosis Comments HEPATITIS C ANTIBODY W RFLX PCR Routine 08/03/2024 9:30 AM ROBOTIC TECHNICIAN Healthcare maintenance TSH REFLEX FREE T4 Routine 08/03/2024 9: 30 AM ROBOTIC TECHNICIAN Healthcare maintenance Elevated BP without diagnosis of hypertension LIPID PROFILE Routine 08/03/2024 9:30 AM ROBOTIC TECHNICIAN Healthcare maintenance Elevated BP without diagnosis of hypertension COMPREHENSIVE METABOLIC PANEL Routine 08/03/2024 9:30 AM ROBOTIC TECHNICIAN Healthcare maintenance Elevated BP without diagnosis of hypertension CBC W AUTO DIFFERENTIAL Routine 08/03/2024 9:30 AM ROBOTIC TECHNICIAN Healthcare maintenance Elevated BP without diagnosis of hypertension from Last 3 Months Results * HEPATITIS C ANTIBODY W RFLX PCR (08/03/2024 9:30 AM ROBOTIC TECHNICIAN) Hepatitis C Antibody Non Reactive Non Reactive [facility] INSURANCE BILL Comment: Performed at: ??01 - [facility] [address] ??[id number] Datapower Developer: Tunde Carlson PhD, Phone: ??[phone] Interpretation Comment [facility] INSURANCE BILL Comment: Not infected with HCV unless early or acute infection is suspected (which may be delayed in an immunocompromised individual), or other evidence exists to indicate HCV infection. Blood BLOOD SPECIMEN / Unknown 08/03/2024 9:30 AM ROBOTIC TECHNICIAN 08/03/2024 Narrative [facility] INSURANCE BILL - 08/04/2024 6:09 AM ROBOTIC TECHNICIAN Performed at: ??01 - [facility] ??[id number] Datapower Developer: Tunde Carlson PhD, Phone: ??[phone] Bella Chopra MD LAB - CHEMISTRY ORDERABLES [facility] INSURANCE BILL [address] [place] [address] * TSH REFLEX FREE T4 (08/03/2024 9:30 AM ROBOTIC TECHNICIAN) TSH 2.080 0.450 - 4.500 uIU/mL [facility] INSURANCE BILL Blood BLOOD SPECIMEN / Unknown 08/03/2024 9:30 AM ROBOTIC TECHNICIAN 08/03/2024 Narrative [facility] INSURANCE BILL - 08/04/2024 6:09 AM ROBOTIC TECHNICIAN Performed at: ?? - [facility] ??[id number] Datapower Developer: Tunde Carlson PhD, Phone: ??[phone] Bella Chopra MD LAB - CHEMISTRY ORDERABLES [facility] INSURANCE BILL [address] [place] [address] * CBC WITH DIFFERENTIAL (08/03/2024 9:30 AM ROBOTIC TECHNICIAN) WBC 7.2 3.4 - 10.8 x10E3/uL [facility] [...] BLOOD SPECIMEN / Unknown 08/03/2024 9:30 AM ROBOTIC TECHNICIAN 08/03/2024 Narrative [facility] INSURANCE BILL - 08/04/2024 12:06 AM ROBOTIC TECHNICIAN Performed at: ??01 - [facility] [address] ??[id number] Datapower Developer: Tunde Carlson PhD, Phone: ??[phone] Bella Chopra MD LAB - HEMATOLOG Y ORDERABLES [facility] INSURANCE BILL [address] [place] [address] * COMPREHENSIVE METABOLIC PANEL (08/03/2024 9:30 AM ROBOTIC TECHNICIAN) Glucose 89 70 - 99 mg/dL [facility] [...] BLOOD SPECIMEN / Unknown 08/03/2024 9:30 AM ROBOTIC TECHNICIAN 08/03/2024 Narrative [facility] INSURANCE BILL - 08/04/2024 6:09 AM ROBOTIC TECHNICIAN Performed at: ??01 - [facility] [address] ??[id number] Datapower Developer: Tunde Carlson PhD, Phone: ??[phone] Bella Chopra MD LAB - CHEMISTRY ORDERABLES [facility] INSURANCE BILL [address] [place] [address] * (ABNORMAL) LIPID PROFILE (08/03/2024 9:30 AM ROBOTIC TECHNICIAN) Cholesterol 193 100 - 199 mg/dL [facility] INSURANCE BILL Triglycerides 57 0 - 149 mg/dL [facility] INSURANCE BILL HDL Cholesterol 44 >39 mg/dL [facility] INSURANCE BILL VLDL Calculated 11 5 - 40 mg/dL [facility] INSURANCE BILL LDL Calculated 138(H) 0 - 99 mg/dL [facility] INSURANCE BILL Blood BLOOD SPECIMEN / Unknown 08/03/2024 9:30 AM ROBOTIC TECHNICIAN 08/03/2024 Narrative [facility] INSURANCE BILL - 08/04/2024 6:09 AM ROBOTIC TECHNICIAN Performed at: ??01 - [facility] [address] ??[id number] Datapower Developer: Tunde Carlson PhD, Phone: ??[phone] Bella Chopra MD LAB - CHEMISTRY ORDERABLES Performing Organization Address [facility] de Phone Number [facility] INSURANCE BILL [address] [place] [address] from Last 3 Months Care Teams Network Relay Tester Relationship Specialty Start Date End Date Bella Chopra MD [address] [place] [address] PCP - General Internal Medicine 07/23/24
== END 2024-08-11 11:27 | disposition home or self-care (01) ==
LOC: ANHSURGERY 11:36
PROVIDERS: Visit Provider Surgery
DX: K40.20 Bilateral inguinal hernia, without obstruction or gangrene, not specified as recurrent (principal)
CPT/HCPCS: 36415; 86850; 86900; 86901

== ENCOUNTER → 2024-08-13 00:05 | Day surgery (SDC) | payer MEDICARE, SELFPAY ==
--- NOTE | 2024-08-10 12:49 | PC.NURSE ---
Report to the Outpatient Waiting Room, entrance under the green pavilion located off [facility], at time __1200 NOON on date _08/13/24 . Planned Procedure Time: __2 PM .? Time changes happen often and if your time is changed the preop area will call you the afternoon before. - You and your visitor will be asked to self-screen and do not enter if you have any COVID symptoms. Please call surgeon if you need to reschedule. - A mask is optional within the hospital at this time. Patients may have clear liquids (water, carbonated beverages, clear teas, apple juice) until 3 hours prior to surgery( 11 AM ) with a maximum of 20 ounces. - No food from midnight until time of surgery and no smoking. This includes no chewing gum, candy or mints. Take only the following medications with a SIP of water on the morning of surgery: NONE DO NOT STOP ANY OF YOUR OTHER PRESCRIPTION MEDICATIONS PRIOR TO SURGERY EXCEPT THE FOLLOWING Medications to discontinue per physician NONE Please no make-up, nail bulgarian, hairspray, perfume, deodorant, or body powder the day of surgery.? No jewelry (including any body piercings) or valuables the day of surgery, leave them at home.? Please take a shower or bath the night before, or the morning of, surgery with an antibacterial soap.? Wear comfortable, loose fitting clothing.? Children are encouraged to wear pajamas. - Jewelry must be removed prior to entering the operating room.? Rings and piercings that are not removed may be cut off. - The hospital will not accept responsibility for valuables.? - Please leave all valuables, including medications, at home the day of surgery. If you are going home after surgery, a licensed tractor trailer moving van driver must drive you home.? - NO public transportation without another adult if you receive anesthesia. - We recommend that an adult stay with you for 24 hours following discharge. - We also recommend that you do not drive, make important decision, drink alcoholic beverages, or take any drugs that were not prescribed by your health care provider for at least 24 hours after your discharge time. For Pediatric surgeries, we recommend two adults accompany the child home. Hold all vitamins and supplements for 3 days per anesthesiologist. Follow any additional instructions given to you from your surgeon. Telephone instructions given to __PATIENT and asked if any additional questions and then verbalized understanding. Patient advised to call surgeon office or pre surgery nurse liaison [phone] if any additional questions.
[2024-08-10 12:59] VITALS: BMI 23.6
[2024-08-13] VITALS (10 sets, daily range): BP systolic 119–143; BP diastolic 81–99; PULSE 66–77; RESP 11–19; TEMP 36.6; O2SAT 96–100; BMI 22.9
--- OUTSIDE RECORDS SUMMARY | 2024-08-13 00:08 | XMS_ITS | Referral Summary ---
Author Organization [facility] Address [address] [facility] [place] [address] Care Team Providers Care Health Sciences Department Chair Name Role Phone Bella Chopra MD Primary Care Provider Source Comments [facility],non-owned Affiliates and Associated Physician Practices is amultiple site organization consisting of ambulatory clinics and hospital sitesin [place], [place], [place] and [place]. This disclosure is being madepursuant to the Care Everywhere program and may not contain all information available regarding this patient. Last updated 18.[facility] Encounters Date Type Department Care Team Description 07/23/2024 Travel 07/23/2024 10:00 AM LUMBER SORTER MACHINE Office Visit [facility] Medical [facility] - Family Medicine [address] [phone] Bella Chopra MD Medicare annual wellness visit, [...] Comments Blood Pressure 128/86 07/23/2024 12:54 PM LUMBER SORTER MACHINE Pulse 82 07/23/2024 10:23 AM LUMBER SORTER MACHINE Temperature 36.3 C (97.3 F) 07/23/2024 10:23 AM LUMBER SORTER MACHINE Respiratory Rate - - Oxygen Saturation 98% 07/23/2024 10:23 AM LUMBER SORTER MACHINE Inhaled Oxygen Concentration - - Weight 72.3 kg (159 lb 6.4 oz) 07/23/2024 10:23 AM LUMBER SORTER MACHINE Height 175.3 cm (5' 9 ) 07/23/2024 10:23 AM LUMBER SORTER MACHINE Body Mass Index 23.54 07/23/2024 10:23 AM LUMBER SORTER MACHINE Plan of Treatment Upcoming Encounters Date Type Department Care Team (Late st Contact Info) Description 07/26/2025 7:20 AM LUMBER SORTER MACHINE Office Visit [facility] Medical [facility] - Family Medicine [address], [facility] [address] [place] [phone] Bella Chopra MD [address] [place] [address] Procedures Procedure Name Priority Date/Time Associated Diagnosis Comments HEPATITIS C ANTIBODY W RFLX PCR Routine 08/03/2024 9:30 AM LUMBER SORTER MACHINE Healthcare maintenance TSH REFLEX FREE T4 Routine 08/03/2024 9: 30 AM LUMBER SORTER MACHINE Healthcare maintenance Elevated BP without diagnosis of hypertension LIPID PROFILE Routine 08/03/2024 9:30 AM LUMBER SORTER MACHINE Healthcare maintenance Elevated BP without diagnosis of hypertension COMPREHENSIVE METABOLIC PANEL Routine 08/03/2024 9:30 AM LUMBER SORTER MACHINE Healthcare maintenance Elevated BP without diagnosis of hypertension CBC W AUTO DIFFERENTIAL Routine 08/03/2024 9:30 AM LUMBER SORTER MACHINE Healthcare maintenance Elevated BP without diagnosis of hypertension from Last 3 Months Results * HEPATITIS C ANTIBODY W RFLX PCR (08/03/2024 9:30 AM LUMBER SORTER MACHINE) Hepatitis C Antibody Non Reactive Non Reactive [facility] INSURANCE BILL Comment: Performed at: [address] [place] [id number] Bacteriologist Dairy: Tunde Carlson PhD, Phone: [phone] Interpretation Comment [facility] INSURANCE BILL Comment: Not infected with HCV unless early or acute infection is suspected (which may be delayed in an immunocompromised individual), or other evidence exists to indicate HCV infection. Blood BLOOD SPECIMEN / Unknown 08/03/2024 9:30 AM LUMBER SORTER MACHINE 08/03/2024 Narrative [facility] INSURANCE BILL - 08/04/2024 6:09 AM LUMBER SORTER MACHINE Performed at: [address] [place] [id number] Bacteriologist Dairy: Tunde Carlson PhD, Phone: [phone] Bella Chopra MD LAB - CHEMISTRY ORDERABLES [facility] INSURANCE BILL [address] [place] [address] * TSH REFLEX FREE T4 (08/03/2024 9:30 AM LUMBER SORTER MACHINE) Pathologist [facility] TSH 2.080 0.450 - 4.500 uIU/mL [facility] INSURANCE BILL Blood BLOOD SPECIMEN / Unknown 08/03/2024 9:30 AM LUMBER SORTER MACHINE 08/03/2024 Narrative [facility] INSURANCE BILL - 08/04/2024 6:09 AM LUMBER SORTER MACHINE Performed at: 01 - [facility] [address] [facility], [place], [place] [id number] Bacteriologist Dairy: Tunde Carlson PhD, Phone: [phone] Bella Chopra MD LAB - CHEMISTRY ORDERABLES [facility] INSURANCE BILL [address] [place] [address] * CBC WITH DIFFERENTIAL (08/03/2024 9:30 AM LUMBER SORTER MACHINE) WBC 7.2 3.4 - 10.8 x10E3/uL [facility] [...] BLOOD SPECIMEN / Unknown 08/03/2024 9:30 AM LUMBER SORTER MACHINE 08/03/2024 Narrative [facility] INSURANCE BILL - 08/04/2024 12:06 AM LUMBER SORTER MACHINE Performed at: 01 - [facility] [address] [place], [place] [id number] Bacteriologist Dairy: Tunde Carlson PhD, Phone: [phone] Bella Chopra MD LAB - HEMATOLOG Y ORDERABLES [facility] INSURANCE BILL [address] [place] [address] * COMPREHENSIVE METABOLIC PANEL (08/03/2024 9:30 AM LUMBER SORTER MACHINE) Glucose 89 70 - 99 mg/dL [facility] [...] BLOOD SPECIMEN / Unknown 08/03/2024 9:30 AM LUMBER SORTER MACHINE 08/03/2024 Narrative [facility] INSURANCE BILL - 08/04/2024 6:09 AM LUMBER SORTER MACHINE Performed at: 01 - [facility] [address] [place], [place] [id number] Bacteriologist Dairy: Tunde Carlson PhD, Phone: [phone] Bella Chopra MD LAB - CHEMISTRY ORDERABLES Performing Organization Address City/[facility]/ZIP Co de Phone Number [facility] INSURANCE BILL [address] [place] [address] * (ABNORMAL) LIPID PROFILE (08/03/2024 9:30 AM LUMBER SORTER MACHINE) Cholesterol 193 100 - 199 mg/dL [facility] INSURANCE BILL Triglycerides 57 0 - 149 mg/dL [facility] INSURANCE BILL HDL Cholesterol 44 >39 mg/dL [facility] INSURANCE BILL VLDL Calculated 11 5 - 40 mg/dL [facility] INSURANCE BILL LDL Calculated 138(H) 0 - 99 mg/dL [facility] INSURANCE BILL Blood BLOOD SPECIMEN / Unknown 08/03/2024 9:30 AM LUMBER SORTER MACHINE 08/03/2024 Narrative [facility] INSURANCE BILL - 08/04/2024 6:09 AM LUMBER SORTER MACHINE Performed at: 01 - [facility] [address] [place], [place] [id number] Bacteriologist Dairy: Tunde Carlson PhD, Phone: [phone] Bella Chopra MD LAB - CHEMISTRY ORDERABLES Performing Organization Address City/[facility]/ZIP Co de Phone Number [facility] INSURANCE BILL [address] [place] [address] from Last 3 Months Care Teams Health Sciences Department Chair Relationship Specialty Start Date End Date Bella Chopra MD [address] [place] [address] PCP - General Internal Medicine 07/23/24
--- OUTSIDE RECORDS SUMMARY | 2024-08-13 00:08 | XMS_ITS | Clinical Summary ---
Author Organization [facility] Medical Office Building A Address [address] [place] [address] Care Team Providers Care Health Information Assistant Name Role Phone Maricel Saucedo MD Primary [...] Department Care Team Description 06/22/2024 5:15 PM DISABILITY RATER Office Visit [facility] Convenient Care at [address] [address] Alesha Stevens, ALEKSANDER Rash and [...] on file Legal Sex Male 10:22 AM DISABILITY RATER Gender Identity Not on file Sexual Orientation Not on file Obstetrics History Last Filed Vital Signs Vital Sign Reading Time Taken Comments Blood Pressure 138/90 06/22/2024 5:11 PM DISABILITY RATER Pulse 64 06/22/2024 5:11 PM DISABILITY RATER Temperature 36.6 C (97.8 F) 06/22/2024 5:11 PM DISABILITY RATER Respiratory Rate 20 06/22/2024 5:11 PM DISABILITY RATER Oxygen Saturation 99% 06/22/2024 5:11 PM DISABILITY RATER Inhaled Oxygen Concentration - - Weight 72.8 kg (160 lb 9.6 oz) 06/22/2024 5:11 P M DISABILITY RATER Height 175.3 cm (5' 9 ) 06/22/2024 5:11 PM DISABILITY RATER Body Mass Index 23.72 06/22/2024 5:11 PM DISABILITY RATER Plan of Treatment Health Maintenance Due Date [...] a test for HCV RNA (test code 88150) is suggested. For additional information please refer to http://education.Influx/faq/UDG75p7 (This link is being provided for informational/ educational purposes only.) 11/22/2022 7:24 AM CDT 11/22/2022 7:27 AM CDT Narrative [facility] - 11/23/2022 6:23 AM CDT FASTING:YES FASTING: YES Petar Mckeon MD LAB MICROBIOLOGY - GENERA L ORDERABLES Final Result Performing Organization Address [facility]/State/ZIP Co de Phone Number [facility] [address] [place] [address] * HM COLONOSCOPY (02/02/2022) Scribed Colonoscopy Normal Comment:see media Mike Cid MD HEALTH MAINTENANCE Final Result * PSA screen (10/19/2021 7:08 AM CDT) PSA 0.39 < OR = 4.00 ng/mL [facility] Comment: The total PSA value from this assay system is standardized against the WHO standard. The test result will be approximately 20% lower when compared to the equimolar-standardized total PSA (Lidia Clovis). Comparison of serial PSA results should be [...] MD LAB BLOOD ORDERABLES Final Res ult SHREYAS [facility] [address] [facility] [place] [address] from Last 3 Months or Most Recently Relevant to Health Maintenance Insurance [place] [facility] MEDICARE Address: [address] [address] [place] [address] MEDICARE [facility] MEDICARE Address: [address] [address] [place] [address] Care Teams Health Information Assistant Relationship Specialty Start Date End Date Maricel Saucedo MD PCP - General Family Medicine 10/10/23 Bernardo Vargas III, MD [address] [place] [address] Radiation Oncology 10/10/23
--- OUTSIDE RECORDS SUMMARY | 2024-08-13 00:08 | XMS_ITS | Patient Health Summary ---
Author Organization [facility] Address [address] [place] [address] Care Team Providers Care Drier Name Role Phone Bella Chopra MD Primary Care Provider Note from [facility],non-owned Affiliates and Associated Physician Practices is amultiple site organization consisting of ambulatory clinics and hospital sitesin [place], [place], [place] and [place]. This disclosure is being madepursuant to the Care Everywhere program and may not contain all information available regarding this patient. Last updated 18.[facility] Allergies No known active allergies Medications [...] Comments Blood Pressure 128/86 07/23/2024 12:54 PM BICYCLE INSPECTOR Pulse 82 07/23/2024 10:23 AM BICYCLE INSPECTOR Temperature 36.3 C (97.3 F) 07/23/2024 10:23 AM BICYCLE INSPECTOR Respiratory Rate - - Oxygen Saturation 98% 07/23/2024 10:23 AM BICYCLE INSPECTOR Inhaled Oxygen Concentration - - Weight 72.3 kg (159 lb 6.4 oz) 07/23/2024 10:23 AM BICYCLE INSPECTOR Height 175.3 cm (5' 9 ) 07/23/2024 10:23 AM BICYCLE INSPECTOR Body Mass Index 23.54 07/23/2024 10:23 AM BICYCLE INSPECTOR Procedures * HEPATITIS C ANTIBODY W RFLX [...] ANTIBODY W RFLX PCR (08/03/2024 9:30 AM BICYCLE INSPECTOR) Hepatitis C Antibody Non Reactive Non Reactive [facility] Comment: Performed at: - [address] [id number] Claims Coordinator: Tunde Carlson PhD, Phone: [phone] Interpretation Comment [facility] INSURANCE BILL Comment: Not infected with HCV unless early or acute infection is suspected (which may be delayed in an immunocompromised individual), or other evidence exists to indicate HCV infection. Blood BLOOD SPECIMEN / Unknown 08/03/2024 9:30 AM BICYCLE INSPECTOR 08/03/2024 Narrative [facility] INSURANCE BILL - 08/04/2024 6:09 AM BICYCLE INSPECTOR Performed at: [address] [place] [id number] Claims Coordinator: Tunde Carlson PhD, Phone: [phone] Bella Chopra MD LAB - CHEMISTRY ORDERABLES [facility] INSURANCE BILL [address] [place] [address] * TSH REFLEX FREE T4 (08/03/2024 9:30 AM BICYCLE INSPECTOR) [facility] TSH 2.080 0.450 - 4.500 uIU/mL [facility] INSURANCE BILL Blood BLOOD SPECIMEN / Unknown 08/03/2024 9:30 AM BICYCLE INSPECTOR 08/03/2024 Narrative [facility] INSURANCE BILL - 08/04/2024 6:09 AM BICYCLE INSPECTOR Performed at: 01 - [facility] [address] [id number] Claims Coordinator: Tunde Carlson PhD, Phone: [phone] Bella Chopra MD LAB - CHEMISTRY ORDERABLES Performing Organization Address [facility] Co de Phone Number [facility] INSURANCE BILL [address] [place] [address] * CBC WITH DIFFERENTIAL (08/03/2024 9:30 AM BICYCLE INSPECTOR) [facility] WBC 7.2 3.4 - 10.8 x10E3/uL [...] BLOOD SPECIMEN / Unknown 08/03/2024 9:30 AM BICYCLE INSPECTOR 08/03/2024 Narrative [facility] INSURANCE BILL - 08/04/2024 12:06 AM BICYCLE INSPECTOR Performed at: - [address] [id number] Claims Coordinator: Tunde Carlson PhD, Phone: [phone] Bella Chopra MD LAB - HEMATOLOG Y ORDERABLES [facility] INSURANCE BILL [address] [place] [address] * COMPREHENSIVE METABOLIC PANEL (08/03/2024 9:30 AM BICYCLE INSPECTOR) Glucose 89 70 - 99 mg/dL [facility] [...] BLOOD SPECIMEN / Unknown 08/03/2024 9:30 AM BICYCLE INSPECTOR 08/03/2024 Narrative [facility] INSURANCE BILL - 08/04/2024 6:09 AM BICYCLE INSPECTOR Performed at: - [facility] [address] [id number] Claims Coordinator: Tunde Carlson PhD, Phone: [phone] Bella Chopra MD LAB - CHEMISTRY ORDERABLES Performing Organization Address City/[facility] Co de Phone Number [facility] INSURANCE BILL [address] [place] [address] * (ABNORMAL) LIPID PROFILE (08/03/2024 9:30 AM BICYCLE INSPECTOR) [facility] Cholesterol 193 100 - 199 mg/dL [facility] INSURANCE BILL Triglycerides 57 0 - 149 mg/dL [facility] INSURANCE BILL HDL Cholesterol 44 >39 mg/dL [facility]URANCE BILL VLDL Calculated 11 5 - 40 mg/dL [facility] INSURANCE BILL LDL Calculated 138(H) 0 - 99 mg/dL [facility] INSURANCE BILL Blood BLOOD SPECIMEN / Unknown 08/03/2024 9:30 AM BICYCLE INSPECTOR 08/03/2024 Narrative [facility] INSURANCE BILL - 08/04/2024 6:09 AM BICYCLE INSPECTOR Performed at: - [facility] [address] [id number] Claims Coordinator: Tunde Carlson PhD, Phone: [phone] Bella Chopra MD LAB - CHEMISTRY ORDERABLES Performing Organization Address City/[facility] Co de Phone Number [facility] INSURANCE BILL [address] [place] [address] Care Teams Drier Relationship Specialty Start Date End Date Bella Chopra MD [address] [place] [address] [place] [address] PCP - General Internal Medicine 07/23/24
--- OUTSIDE RECORDS SUMMARY | 2024-08-13 00:08 | XMS_ITS | Clinical Summary ---
Author Organization [facility] Address [address] [facility] [place] [address] Care Team Providers Care Joint Sealer Name Role Phone Bella Chopra MD Primary Care Provider Source Comments [facility],non-owned Affiliates and Associated Physician Practices is amultiple site organization consisting of ambulatory clinics and hospital sitesin [place], [place], [place] and [place]. This disclosure is being madepursuant to the Care Everywhere program and may not contain all information available regarding this patient. Last updated 18.[facility] Allergies No known active allergies Medications * [...] Department Care Team Description 07/23/2024 10:00 AM LINE UP MACHINE OPERATOR Office Visit [facility] Family Medicine [address] [facility], [address] [address] Bella Chopra MD Medicare annual [...] Comments Blood Pressure 128/86 07/23/2024 12:54 PM LINE UP MACHINE OPERATOR Pulse 82 07/23/2024 10:23 AM LINE UP MACHINE OPERATOR Temperature 36.3 C (97.3 F) 07/23/2024 10:23 AM LINE UP MACHINE OPERATOR Respiratory Rate - - Oxygen Saturation 98% 07/23/2024 10:23 AM LINE UP MACHINE OPERATOR Inhaled Oxygen Concentration - - Weight 72.3 kg (159 lb 6.4 oz) 07/23/2024 10:23 AM LINE UP MACHINE OPERATOR Height 175.3 cm (5' 9 ) 07/23/2024 10:23 AM LINE UP MACHINE OPERATOR Body Mass Index 23.54 07/23/2024 10:23 AM LINE UP MACHINE OPERATOR Plan of Treatment Upcoming Encounters Date Type Department Care Team (Late st Contact Info) Description 07/26/2025 7:20 AM LINE UP MACHINE OPERATOR Office Visit [facility] [address] [place] [address] Bella Chopra MD [address] [place] [address] Health Maintenance Due Date Last Done [...] exists DEPRESSION SCREENING Completed 07/23/2024 MEDICARE AWV CALENDAR YEAR Completed 07/23/2024 HEPATITIS C SCREENING [...] W RFLX PCR Routine 08/03/2024 9:30 AM LINE UP MACHINE OPERATOR Healthcare maintenance TSH REFLEX FREE T4 Routine 08/03/2024 9: 30 AM LINE UP MACHINE OPERATOR Healthcare maintenance Elevated BP without diagnosis of hypertension LIPID PROFILE Routine 08/03/2024 9:30 AM LINE UP MACHINE OPERATOR Healthcare maintenance Elevated BP without diagnosis of hypertension COMPREHENSIVE METABOLIC PANEL Routine 08/03/2024 9:30 AM LINE UP MACHINE OPERATOR Healthcare maintenance Elevated BP without diagnosis of hypertension CBC W AUTO DIFFERENTIAL Routine 08/03/2024 9:30 AM LINE UP MACHINE OPERATOR Healthcare maintenance Elevated BP without diagnosis of hypertension from Last 3 Months Results * HEPATITIS C ANTIBODY W RFLX PCR (08/03/2024 9:30 AM LINE UP MACHINE OPERATOR) Hepatitis C Antibody Non Reactive Non Reactive [facility] INSURANCE BILL Comment: Performed at: [address] [place] [id number] [employer] Supervisor: Tunde Carlson PhD, Phone: [phone] Interpretation Comment [facility] INSURANCE BILL Comment: Not infected with HCV unless early or acute infection is suspected (which may be delayed in an immunocompromised individual), or other evidence exists to indicate HCV infection. Blood BLOOD SPECIMEN / Unknown 08/03/2024 9:30 AM LINE UP MACHINE OPERATOR 08/03/2024 Narrative [facility] INSURANCE BILL - 08/04/2024 6:09 AM LINE UP MACHINE OPERATOR Performed at: [facility] [id number] [employer] Supervisor: Tunde Carlson PhD, Phone: [phone] Bella Chopra MD LAB - CHEMISTRY ORDERABLES [facility] INSURANCE BILL [address] [place] [address] * TSH REFLEX FREE T4 (08/03/2024 9:30 AM LINE UP MACHINE OPERATOR) TSH 2.080 0.450 - 4.500 uIU/mL [facility] INSURANCE BILL Blood BLOOD SPECIMEN / Unknown 08/03/2024 9:30 AM LINE UP MACHINE OPERATOR 08/03/2024 Narrative [facility] INSURANCE BILL - 08/04/2024 6:09 AM LINE UP MACHINE OPERATOR Performed at: [address] [place] [id number] [employer] Supervisor: Tunde Carlson PhD, Phone: [phone] Bella Chopra MD LAB - CHEMISTRY ORDERABLES [facility] INSURANCE BILL [address] [place] [address] * CBC WITH DIFFERENTIAL (08/03/2024 9:30 AM LINE UP MACHINE OPERATOR) WBC 7.2 3.4 - 10.8 x10E3/uL [facility] [...] BLOOD SPECIMEN / Unknown 08/03/2024 9:30 AM LINE UP MACHINE OPERATOR 08/03/2024 Narrative [facility] INSURANCE BILL - 08/04/2024 12:06 AM LINE UP MACHINE OPERATOR Performed at: 01 - [facility] [address] [id number] [employer] Supervisor: Tunde Carlson PhD, Phone: [phone] Bella Chopra MD LAB - HEMATOLOG Y ORDERABLES [facility] INSURANCE BILL [address] [place] [address] * COMPREHENSIVE METABOLIC PANEL (08/03/2024 9:30 AM LINE UP MACHINE OPERATOR) Glucose 89 70 - 99 mg/dL [...] BLOOD SPECIMEN / Unknown 08/03/2024 9:30 AM LINE UP MACHINE OPERATOR 08/03/2024 Narrative [facility] INSURANCE BILL - 08/04/2024 6:09 AM LINE UP MACHINE OPERATOR Performed at: 01 - [address] [id number] [employer] Supervisor: Tunde Carlson PhD, Phone: [phone] Bella Chopra MD LAB - CHEMISTRY ORDERABLES [facility] INSURANCE BILL [address] [place] [address] * (ABNORMAL) LIPID PROFILE (08/03/2024 9:30 AM LINE UP MACHINE OPERATOR) Cholesterol 193 100 - 199 mg/dL [facility] INSURANCE BILL Triglycerides 57 0 - 149 mg/dL [facility] INSURANCE BILL HDL Cholesterol 44 >39 mg/dL [facility] INSURANCE BILL VLDL Calculated 11 5 - 40 mg/dL [facility] INSURANCE BILL LDL Calculated 138(H) 0 - 99 mg/dL [facility] INSURANCE BILL Blood BLOOD SPECIMEN / Unknown 08/03/2024 9:30 AM LINE UP MACHINE OPERATOR 08/03/2024 Narrative [facility] INSURANCE BILL - 08/04/2024 6:09 AM LINE UP MACHINE OPERATOR Performed at: 01 - [address] [id number] [employer] Supervisor: Tunde Carlson PhD, Phone: [phone] Bella Chopra MD LAB - CHEMISTRY ORDERABLES [facility] INSURANCE BILL [address] [place] [address] from Last 3 Months Care Teams Joint Sealer Relationship Specialty Start Date End Date Bella Chopra MD [address] [place] [address] PCP - General Internal Medicine 07/23/24
--- OUTSIDE RECORDS SUMMARY | 2024-08-13 00:08 | XMS_ITS | Referral Summary ---
Author Organization [facility] Medical Office Building A Address [address] [place] [address] Care Team Providers Care Drier Belt Conveyor Name Role Phone Maricel Saucedo MD Primary Care Provider Alicia DUBON MD, Bernardo Edmond Unavailable + Encounters Date Type Department Care Team Description 06/22/2024 5:15 PM SPA CONCIERGE Office Visit [facility] Con[facility] Care at [address] [address] Alesha Stevens NP Rash and [...] on file Legal Sex Male 10:22 AM SPA CONCIERGE Gender Identity Not on file Sexual Orientation Not on file Last Filed Vital Signs Vital Sign Reading Time Taken Comments Blood Pressure 138/90 06/22/2024 5:11 PM SPA CONCIERGE Pulse 64 06/22/2024 5:11 PM SPA CONCIERGE Temperature 36.6 C (97.8 F) 06/22/2024 5:11 PM SPA CONCIERGE Respiratory Rate 20 06/22/2024 5:11 PM SPA CONCIERGE Oxygen Saturation 99% 06/22/2024 5:11 PM SPA CONCIERGE Inhaled Oxygen Concentration - - Weight 72.8 kg (160 lb 9.6 oz) 06/22/2024 5:11 P M SPA CONCIERGE Height 175.3 cm (5' 9 ) 06/22/2024 5:11 PM SPA CONCIERGE Body Mass Index 23.72 06/22/2024 5:11 PM SPA CONCIERGE Plan of Treatment Not on file Procedures [...] a test for HCV RNA (test code 47931) is suggested. For additional information please refer to http://education.Bamatea/faq/JLR40m9 (This link is being provided for informational/ educational purposes only.) 11/22/2022 7:24 AM CDT 11/22/2022 7:27 AM CDT Narrative [facility] - 11/23/2022 6:23 AM CDT FASTING:YES FASTING: YES Petar Mckeon MD LAB MICROBIOLOGY - GENERA L ORDERABLES Final Result Performing Organization Address [facility] Co de Phone Number [facility] [address] [place] [address] * COLONOSCOPY (02/02/2022) Scribed Colonoscopy Normal Comment:see [...] ORDERABLES Final Res ult Performing Organization Address City/[facility]/ZIP Co de Phone Number [facility] [address] [place] [address] from Last 3 Months or Most Recently Relevant to Health Maintenance Insurance [place] MED[employer] SOL[employer] MEDICARE SOLUTIONS Care Teams Drier Belt Conveyor Relationship Specialty Start Date End Date Maricel Saucedo MD PCP - General Family Medicine 10/10/23 Bernardo Vargas III, MD [address] [place] [address] Radiation Oncology 10/10/23
--- OUTSIDE RECORDS SUMMARY | 2024-08-13 00:08 | XMS_ITS | Clinical Summary ---
Author Organization [facility] Address [address] [place] [address] Phone Care Team Providers Care Charcoal Unloader Name Role Phone Bernardo Vargas MD Unavailable [phone] Janusz Nieto MD Unavailable Petar Mckeon MD Primary Care Provider [phone] Allergies No known active allergies Medications Calcium [...] rising PSA of 4.0. Prostate biopsies at [facility] 01/15/2011 revealed 2/6 cores on the left involved with Combs 3 + 3 adenocarcinoma involving approximately 5% of the core tissue. All the tissue on the right was benign. MIRTA findings at that time were not available [...] to 85% of each biopsy core. 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 He received short-term [...] 57 04/08/2024 9:01 AM CDT Temperature 35.8 C (96.4 F) 04/08/2024 9:01 AM CDT Respiratory Rate 18 04/08/2024 9:01 AM CDT [...] 9:00 AM CDT Office Visit [facility] Oncology Services [address] [place] [phone] Bernardo Vargas MD [address] [place], [place] [id number] Discharge Disposition: Discharged to home or Selfcare [...] 0.44 <4.00 ng/mL 04/01/2023 1:16 PM CDT [facility] Blood Venipuncture / Unknown 04/01/2023 11:20 AM CDT 04/01/2023 12:[address] [facility] - 04/01/2023 1:16 PM CDT PSA NOTE: The PSA value should be used in conjunction with information available from clinical evaluation and other diagnostic procedures. The LEGAL ASSOCIATE Total PSA assay is a Chemiluminescent Microparticle Immunoassay (CMIA) for the quantitative determination of total PSA (both free PSA and PSA complexed to [id number]-1-[id number]) in human serum. Bernardo Vargas MD CHEMISTRY ORDERABLES Fi nal Result [facility] [address] [place] [address] from Last 3 Months or Most Recently Relevant to Health Maintenance Insurance MEDICARE C [facility] Care Teams Charcoal Unloader Relationship Specialty Start Date End Date Petar Mckeon MD [address] [place] [address] PCP - General Family Medicine 10/05/22 Bernardo Vargas MD [address] [place] [address] Consulting Physician Radiation Oncology 12/20/21 Janusz Nieto MD [address] [address] Consulting Physician Colon and Rectal Surgery 12/20/21
--- NOTE | 2024-08-13 12:04 | WPDHPUPDATE1 ---
History and Physical Update Update Date/Time: 08/13/24 12:04 History and Physical has been reviewed, including an updated exam of the patient. There are NO changes in the patient's condition. Risks, benefits, and alternatives have been discussed and questions answered. Patient agrees to proceed with procedure.
[2024-08-13] MEDS: LACTATED RINGERS 1,000 ML 30 ML IV CONT ×2 (12:25→16:04)
[2024-08-13] MEDS: ACETAMINOPHEN 500 MG TABLET 1000 MG PO (12:29)
[2024-08-13] MEDS: KETOROLAC 15 MG/ML VIAL (*BKC) IV PUSH (12:30)
--- NOTE | 2024-08-13 13:23 | P.PNAN_ITS ---
Anes - Initial Pre Proc Eval Procedure: Operation Date: 08/13/24 14:00 Proposed Procedures p Robotic Bilateral Inguinal Hernia Repair with Mesh - Anisa Garcia MD Date/Time: 08/13/24 13:23 Surgeon: Anisa Garcia MD Pre Op Diagnosis: bilat inguinal hernia Patient Data Age: 68 Gender: M Height: 1.75 m Weight: 70.5 kg Last Vital Signs Temp 36.6 C 08/13/24 12:40 Pulse 66 08/13/24 12:40 Resp 16 08/13/24 12:40 BP 141/99 H 08/13/24 12:40 Pulse Ox 100 08/13/24 12:40 O2 Del Method Room Air 08/13/24 12:40 Allergies Allergy/AdvReac Type Severity Reaction Status Date / Time No Known Allergies Allergy Verified 08/13/24 12:38 Home Medications ?Medication ?Instructions ?Recorded ?Confirmed ?Type maltodextrin 1 ea PO DAILY 08/10/24 08/10/24 History Patient hx anesthesia problems: none Family hx anesthesia problems: none Results Review: All pre-operative results and documents have been reviewed as part of the pre- operative evaluation. [facility] Past Medical History Medical History History of prostate cancer Family History Family History Father Heart disease Malignant neoplasm of prostate Social History Social History Smoking packs per day: 0.5 Smoking cigarettes per day: 10.0 Years smoked: 20 Smoking pack-years: 10.00 Smoking status: Former smoker Tobacco type: cigarettes Smoking end date: 07/08/05 Do You Feel Safe in your Home?: Yes Lack of Transportation: No Lack of Food: Never True Current Housing: I Have Housing Concerned About Future Housing: No Difficulty Paying Gas/Electric Bills: No Difficulty Paying for Meds: No Currently Unemployed: No Education: High School Diploma/GED Difficulty w/ Childcare or Family Care: No Living arrangements: alone Spiritual care concerns: No Anes - Eval Final PreProcedure Day of Procedure 08/13/24 13:23 Patient weight: normal Heart: regular rate and rhythm Lungs: clear to auscultation Airway: Mallampati scale class II Neurological: alert and oriented Last oral intake: >/= 8 hours ASA classification: III Emergent: no Anesthetic plan: proceed Anesthesia type and monitoring: general ETT and standard monitoring Results Review: All pre-operative results and documents have been reviewed as part of the pre- operative evaluation. Informed Consent: The patient's anesthetic plan and its attendant risks and benefits were discussed with the patient/family/POA. Questions were solicited and answers provided to the satisfaction of the patient/family/POA.
[2024-08-13] MEDS: ceFAZolin 2 GM/D5W 50 ML 2 GM/50 ML BAG IVPB (14:27)
[2024-08-13] MEDS: BUPIVACAINE/EPINEPHRINE 0.5% 30 ML VIAL INFILTRATE (14:44)
[2024-08-13] MEDS: fentaNYL CITRATE INJ (*CRX) 100 MCG/2 ML VIAL 25 MCG IV PUSH ×8 (15:57→16:42)
--- NOTE | 2024-08-13 15:59 | P.OP_ITS ---
Procedure Note - Detailed Date of Procedure 08/13/24 Pre-op Diagnosis bilat inguinal hernia Post-op Diagnosis Same Procedure Performed robotic assisted bilateral inguinal hernia repair with mesh Surgeon Anisa Garcia MD Anesthesia General Indications 68-year-old male presenting to the office with bilateral inguinal hernia right greater than left Findings bilateral inguinal hernia, bilateral indirect right greater than left Description of Procedure Patient was brought into the operating room and placed in the supine position. After adequate induction of general anesthesia, the patient was prepped and tiffani ped in normal sterile fashion. A time-out was then done to verify the patient's identity, as well as the procedure being performed. I began by making a 8 mm incision in the supraumbilical region, a Veress needle was then placed into the peritoneal cavity. CO2 gas was then insufflated and after adequate pneumoperitoneum was achieved, the Veress needle was removed. I then placed an 8 mm trocar through this incision. I then placed the endoscope through this trocar site and under direct visualization placed 2 further 8 mm ports in the right and left mid abdomen. The [employer] robot was then docked to the 3 trocar sites. I then scrubbed out and went to the robotic console. Upon examining the pelvis, it was noted that the patient had a moderate sized right inguinal hernia. The left side was examined and a small hernia defect was noted. I began by making a preperitoneal flap approximately 6 cm superior to the right sided defect. This flap was carried medially past the umbilical ligaments and laterally to the transversalis. It then began dissection of my medial compartment taking this down to the pubic tubercle. No direct hernia was encountered. I then began the lateral dissection taking this down to the transversalis fascia. Once these compartments were achieved, I began dissection around the cord structures. A moderate sized indirect hernia was noted at this point. Using careful dissection, was able to reduce indirect hernia sac off the cord structures. Once this was adequately done, I went ahead and placed a large piece of 3D Max mesh into the abdominal cavity. The mesh was carefully positioned, centering the center of the mesh over the indirect defect. Once this was done, was very satisfied with our repair. Using 3-0 Vicryl sutures, I tacked the mesh medially to Eloy's ligament. Two lateral sutures were placed from the mesh to the transversalis fascia. I then began on the left side by making a preperitoneal flap approximately 6 cm superior to the left sided defect. This flap was carried medially past the umbilical ligaments and laterally to the transversalis. It then began dissection of my medial compartment taking this down to the pubic tubercle. I then began the lateral dissection taking this down to the transversalis fascia. Once these compartments were achieved, I began dissection around the cord structures. A small indirect hernia was noted at this point. Using careful dissection, was able to reduce indirect hernia sac off the cord structures. Once this was adequately done, I went ahead and placed a large piece of 3D Max mesh into the abdominal cavity. The mesh was carefully positioned, centering the center of the mesh over the indirect defect. Once this was done, was very satisfied with our repair. Using 3-0 Vicryl sutures, I tacked the mesh medially to Eloy's ligament. Two lateral sutures were placed from the mesh to the transversalis fascia.I then closed the peritoneal flap bilaterally with running 2.0 V Lock suture x 2. The abdomen was then desufflated, and all ports were removed. All incisions were then closed with the 4.0 monocryl suture. Dermabond was placed on each wound. The patient tolerated the procedure well, was extubated in the operating room postoperatively, and will now be transferred to the recovery room in stable condition. Implants bilateral large 3DMax mesh Estimated Blood Loss 10 Drains No Packing No Pathology None sent Complications No immediate complications Condition Stable Disposition PACU [facility] Billing Surgery - Charge Forward: Surgery Billing
[2024-08-13] MEDS: oxyCODONE HCL (*CRX) 5 MG TAB IR PO (17:07)
== END | disposition home or self-care (01) ==
PROVIDERS: Visit Provider Surgery
PROC: 8E0Y4CZ Robotic Assisted Procedure of Lower Extremity, Percutaneous Endoscopic Approach (ICD-10-PCS; CPT 49650; principal; 2024-08-13 14:00)
DX: K40.20 Bilateral inguinal hernia, without obstruction or gangrene, not specified as recurrent (principal); Z85.46 Personal history of malignant neoplasm of prostate; Z87.891 Personal history of nicotine dependence
CPT/HCPCS: 49650; S2900; A9270; C1781; J0690; J1100; J1171; J1885; J2003; J2250; J2405; J2704; J3010; J7120

== ENCOUNTER 2024-10-01 09:50 | Outpatient (CLI) | payer MEDICARE, SELFPAY ==
--- OUTSIDE RECORDS SUMMARY | 2024-10-01 10:47 | XMS_ITS | Referral Summary ---
Author Organization [facility] Medical Office Building A Address [address] [place] [address] Care Team Providers Care Loan Servicing Officer Name Role Phone Maricel Saucedo MD Primary Care Provider Bernardo Vargas MD Unavailable [phone] Allergies No known active allergies Medications erythromycin [...] prostate specific antigen (PSA) 01/04/2011 01/30/2018 Immunizations Immunization Administration Dates Next Due Flucelvax Influenza Quad [...] on file Legal Sex Male 10:22 AM LAPPING MACHINE OPERATOR Gender Identity Not on file Sexual Orientation Not on file Last Filed Vital Signs Vital Sign Reading Time Taken Comments Blood Pressure 138/90 06/22/2024 5:11 PM LAPPING MACHINE OPERATOR Pulse 64 06/22/2024 5:11 PM LAPPING MACHINE OPERATOR Temperature 36.6 C (97.8 F) 06/22/2024 5:11 PM LAPPING MACHINE OPERATOR Respiratory Rate 20 06/22/2024 5:11 PM LAPPING MACHINE OPERATOR Oxygen Saturation 99% 06/22/2024 5:11 PM LAPPING MACHINE OPERATOR Inhaled Oxygen Concentration - - Weight 72.8 kg (160 lb 9.6 oz) 06/22/2024 5:11 P M LAPPING MACHINE OPERATOR Height 175.3 cm (5' 9 ) 06/22/2024 5:11 PM LAPPING MACHINE OPERATOR Body Mass Index 23.72 06/22/2024 5:11 PM LAPPING MACHINE OPERATOR Plan of Treatment Not on file Procedures [...] a test for HCV RNA (test code 82777) is suggested. For additional information please refer to http://education.Veritract/faq/UZB73z3 (This link is being provided for informational/ educational purposes only.) 11/22/2022 7:24 AM CDT 11/22/2022 7:27 AM CDT Narrative [facility] - 11/23/2022 6:23 AM CDT FASTING:YES FASTING: YES Petar Mckeon MD LAB MICROBIOLOGY - GENERA L ORDERABLES Final Result Performing Organization Address City/[facility]/ZIP Co de Phone Number [facility] [address] [facility] [address] * COLONOSCOPY (02/02/2022) Scribed Colonoscopy Normal Comment:see media Mike Cid MD HEALTH MAINTENANCE Final Result * PSA screen (10/19/2021 7:08 AM CDT) PSA 0.39 < OR = 4.00 ng/mL [email or web address] Comment: The total PSA value from this assay system is standardized against the WHO standard. The test result will be approximately 20% lower when compared to the equimolar-standardized total PSA (Lidia Atkinson). Comparison of serial PSA results should be [...] ORDERABLES Final Res ult Performing Organization Address City/[facility]/ZIP Co de Phone Number [facility] [address] [address] from Last 3 Months or Most Recently Relevant to Health Maintenance Insurance [place] [facility] MEDICARE ADVANTAGE [facility] MEDICARE ADVANTAGE Care Teams Loan Servicing Officer Relationship Specialty Start Date End Date Maricel Saucedo MD PCP - General Family Medicine 10/10/23 Bernardo Vargas MD [address] [place] [address] Radiation Oncology 10/10/23
--- OUTSIDE RECORDS SUMMARY | 2024-10-01 10:47 | XMS_ITS | Clinical Summary ---
Author Organization [facility] Address [address] [place] [address] Phone Care Team Providers Care Service Captain Name Role Phone Bernardo Vargas MD Unavailable [phone] Janusz Nieto MD Unavailable Petar Mckeon MD Primary Care Provider [phone] Allergies No known active allergies Medications Calcium [...] rising PSA of 4.0. Prostate biopsies at [facility] 01/15/2011 revealed 2/6 cores on the left involved with Benja 3 + 3 adenocarcinoma involving approximately 5% [...] 9:00 AM CDT Office Visit [facility] Oncology Services [address] [place] [phone] Bernardo Vargas MD [address] [place], [place] [phone] Discharge Disposition: Discharged to home or Selfcare [...] AM CDT 04/01/2023 12:06 PM CDT Narrative [facility] - 04/01/2023 1:16 PM CDT PSA NOTE: The PSA value should be used in conjunction with information available from clinical evaluation and other diagnostic procedures. The EMAIL PRODUCER Total PSA assay is a Chemiluminescent Microparticle Immunoassay (CMIA) for the quantitative determination of total PSA (both free PSA and PSA complexed to [id number]-[id number]) in human serum. Bernardo Vargas MD CHEMISTRY ORDERABLES Fi nal Result [facility] [address] [place] [address] from Last 3 Months or Most Recently Relevant to Health Maintenance Insurance MEDICARE C [facility] Care Teams Service Captain Relationship Specialty Start Date End Date Petar Mckeon MD [address] [place] [address] PCP - General Family Medicine 10/05/22 Bernardo Vargas MD [address] [place] [address] Consulting Physician Radiation Oncology 12/20/21 Janusz Nieto MD [address] [address] Consulting Physician Colon and Rectal Surgery 12/20/21
--- OUTSIDE RECORDS SUMMARY | 2024-10-01 10:47 | XMS_ITS | Clinical Summary ---
Author Organization [facility] [employer] Address [address] [place] [address] Care Team Providers Care Childcare Worker Name Role Phone Bella Chopra MD Primary Care Provider Bella Chopra MD Unavailable [phone] Bella Chopra MD Unavailable [phone] Source Comments [facility] [employer],non-owned Affiliates and Associated Physician Practices is amultiple site organization consisting of ambulatory clinics and hospital sitesin [place], [place], [place] and [place]. This disclosure is being madepursuant to the Care Everywhere program and may not contain all information available regarding this patient. Last updated 18.[facility] [employer] Allergies No known active allergies Medications * [...] Encounters Date Type Department Care Team Description 09/07/2024 Patient Outreach [facility] - Care Coordination [address] [place] [address] Dianne Bach Outreach Preventive Care 07/23/2024 10:00 AM AVIATION MANAGER Office Visit [facility] - Family Medicine [address], [facility] [address] [place] [address] Bella Chopra MD Medicare annual wellness visit, [...] Comments Blood Pressure 128/86 07/23/2024 12:54 PM AVIATION MANAGER Pulse 82 07/23/2024 10:23 AM AVIATION MANAGER Temperature 36.3 C (97.3 F) 07/23/2024 10:23 AM AVIATION MANAGER Respiratory Rate - - Oxygen Saturation 98% 07/23/2024 10:23 AM AVIATION MANAGER Inhaled Oxygen Concentration - - Weight 72.3 kg (159 lb 6.4 oz) 07/23/2024 10:23 AM AVIATION MANAGER Height 175.3 cm (5' 9 ) 07/23/2024 10:23 AM AVIATION MANAGER Body Mass Index 23.54 07/23/2024 10:23 AM AVIATION MANAGER Plan of Treatment Upcoming Encounters Date Type Department Care Team (Late st Contact Info) Description 07/26/2025 7:20 AM AVIATION MANAGER Office Visit [facility] - Family Medicine [address], [facility] [address] [place] [address] Bella Chopra MD [address] [place] [address] Health Maintenance Due Date Last Done Comments COLOGUARD (AGES 45-75) - COLON CA SCREENING 1956 CT COLONOGRAPHY - COLON CA SCREENING 1955 FIT - COLON CA SCREENING 1955 FLEX SIG - COLON CA SCREENING 1955 LIPID TESTING 08/03/2029 08/03/2024 COLON MONITORING 02/02/2032 02/01/2022 COLONOSCOPY - COLON CA SCREENING 02/02/2032 02/01/2022 Colorectal Cancer Screening 02/02/2032 DTAP/TDAP/TD VACCINES (4 - Td or Tdap) 04/12/2033 04/12/2023, 05/05/2020, 06/07/2008 ZOSTER VACCINE Completed 04/21/2018, 0803/2018, 01/21/2017 PNEUMOCOCCAL VACCINE 50+ Completed 07/23/2022 Respiratory [...] complete this topic MENINGOCOCCAL (Group B) VACCINE SHARED DECISION-MAKING Aged Out No longer eligible based on patient's age to complete this topic MENINGOCOCCAL GROUPS A/C/Y/W VACCINE Aged Out No longer eligible based on patient's age to complete this topic Procedures Procedure Name Priority Date/Time Associated Diagnosis Comments HEPATITIS C ANTIBODY W RFLX PCR Routine 08/03/2024 9:30 AM AVIATION MANAGER Healthcare maintenance TSH REFLEX FREE T4 Routine 08/03/2024 9: 30 AM AVIATION MANAGER Healthcare maintenance Elevated BP without diagnosis of hypertension LIPID PROFILE Routine 08/03/2024 9:30 AM AVIATION MANAGER Healthcare maintenance Elevated BP without diagnosis of hypertension COMPREHENSIVE METABOLIC PANEL Routine 08/03/2024 9:30 AM AVIATION MANAGER Healthcare maintenance Elevated BP without diagnosis of hypertension CBC W AUTO DIFFERENTIAL Routine 08/03/2024 9:30 AM AVIATION MANAGER Healthcare maintenance Elevated BP without diagnosis of hypertension COLONOSCOPY 02/01/2022 from Last 3 Months or Most Recently Relevant to Health Maintenance Results * HEPATITIS C ANTIBODY W RFLX PCR (08/03/2024 9:30 AM AVIATION MANAGER) Hepatitis C Antibody Non Reactive Non Reactive [facility] INSURANCE BILL Comment: Performed at: [address] [id number] Architectural Technician: Tunde Carlson PhD, Phone: [phone] Interpretation Comment [facility] INSURANCE BILL Comment: Not infected with HCV unless early or acute infection is suspected (which may be delayed in an immunocompromised individual), or other evidence exists to indicate HCV infection. Blood BLOOD SPECIMEN / Unknown 08/03/2024 9:30 AM AVIATION MANAGER 08/03/2024 Narrative [facility] INSURANCE BILL - 08/04/2024 6:09 AM AVIATION MANAGER Performed at: [address] [id number] Architectural Technician: Tunde Carlson PhD, Phone: [phone] Bella Chopra MD LAB - CHEMISTRY ORDERABLES [facility] INSURANCE BILL [address] [place] [address] * TSH REFLEX FREE T4 (08/03/2024 9:30 AM AVIATION MANAGER) Pathologist [facility] TSH 2.080 0.450 - 4.500 uIU/mL [facility] INSURANCE BILL Blood BLOOD SPECIMEN / Unknown 08/03/2024 9:30 AM AVIATION MANAGER 08/03/2024 Narrative [facility] INSURANCE BILL - 08/04/2024 6:09 AM AVIATION MANAGER [facility]formed [facility] [address] [place], [place] [id number] Architectural Technician: Tunde Carlson PhD, Phone: [phone] Bella Chopra MD LAB - CHEMISTRY ORDERABLES [facility] INSURANCE BILL [address] [place] [address] * CBC WITH DIFFERENTIAL (08/03/2024 9:30 AM AVIATION MANAGER) [facility] WBC 7.2 3.4 - 10.8 [...] BLOOD SPECIMEN / Unknown 08/03/2024 9:30 AM AVIATION MANAGER 08/03/2024 Narrative [facility] INSURANCE BILL - 08/04/2024 12:06 AM AVIATION MANAGER Performed at: 01 - [facility] [address] [place], [place] [id number] Architectural Technician: Tunde Carlson PhD, Phone: [phone] Bella Chopra MD LAB - HEMATOLOG Y ORDERABLES [facility] INSURANCE BILL [address] [place] [address] * COMPREHENSIVE METABOLIC PANEL (08/03/2024 9:30 AM AVIATION MANAGER) Glucose 89 70 - 99 mg/dL [facility] [...] BLOOD SPECIMEN / Unknown 08/03/2024 9:30 AM AVIATION MANAGER 08/03/2024 Narrative [facility] INSURANCE BILL - 08/04/2024 6:09 AM AVIATION MANAGER [facility]formed at: - [facility] [address] [place], [place] [id number] Architectural Technician: Tunde Carlson PhD, Phone: [phone] Bella Chopra MD LAB - CHEMISTRY ORDERABLES Performing Organization Address City/[facility]/ZIP Co de Phone Number [facility] INSURANCE BILL [address] [place] [address] * (ABNORMAL) LIPID PROFILE (08/03/2024 9:30 AM AVIATION MANAGER) [facility] Cholesterol 193 100 - 199 mg/dL [facility] INSURANCE BILL Triglycerides 57 0 - 149 mg/dL [facility] INSURANCE BILL HDL Cholesterol 44 >39 mg/dL [facility] INSURANCE BILL VLDL Calculated 11 5 - 40 mg/dL [facility] INSURANCE BILL LDL Calculated 138(H) 0 - 99 mg/dL [facility] INSURANCE BILL Blood BLOOD SPECIMEN / Unknown 08/03/2024 9:30 AM AVIATION MANAGER 08/03/2024 Narrative [facility] INSURANCE BILL - 08/04/2024 6:09 AM AVIATION MANAGER Performed at: - [facility] [id number] [place], [place] [id number] Architectural Technician: Tunde Carlson PhD, Phone: [phone] Bella Chopra MD LAB - CHEMISTRY ORDERABLES Performing Organization Address City/[facility]/ZIP Co de Phone Number [facility] INSURANCE BILL [address] [place] [address] * COLONOSCOPY (02/01/2022) 02/01/2022 Narrative 02/01/2022 Ordered by an unspecified provider. Scanned Document SCANNING ONLY from Last 3 Months or Most Recently Relevant to Health Maintenance Care Teams Childcare Worker Relationship Specialty Start Date End Date Bella Chopra MD [address] [place] [address] PCP - General Internal Medicine 07/23/24 Bella Chopra MD [address] [facility] [address] PCP - Attributed-[facility] 08/08/24 Bella Chopra MD [address] [address] PCP - Attributed-[facility]P 09/05/24
--- OUTSIDE RECORDS SUMMARY | 2024-10-01 10:47 | XMS_ITS | Clinical Summary ---
Author Organization [facility] Address [address] [place] [address] Care Team Providers Care Home Health Manager Name Role Phone Maricel Saucedo MD Primary Care Provider Bernardo Vargas MD Unavailable [phone] Allergies No known active allergies Medications erythromycin [...] on file Legal Sex Male 10:22 AM TIE TAPE MACHINE OPERATOR Gender Identity Not on file Sexual Orientation Not on file Obstetrics History Last Filed Vital Signs Vital Sign Reading Time Taken Comments Blood Pressure 138/90 06/22/2024 5:11 PM TIE TAPE MACHINE OPERATOR Pulse 64 06/22/2024 5:11 PM TIE TAPE MACHINE OPERATOR Temperature 36.6 C (97.8 F) 06/22/2024 5:11 PM TIE TAPE MACHINE OPERATOR Respiratory Rate 20 06/22/2024 5:11 PM TIE TAPE MACHINE OPERATOR Oxygen Saturation 99% 06/22/2024 5:11 PM TIE TAPE MACHINE OPERATOR Inhaled Oxygen Concentration - - Weight 72.8 kg (160 lb 9.6 oz) 06/22/2024 5:11 P M TIE TAPE MACHINE OPERATOR Height 175.3 cm (5' 9 ) 06/22/2024 5:11 PM TIE TAPE MACHINE OPERATOR Body Mass Index 23.72 06/22/2024 5:11 PM TIE TAPE MACHINE OPERATOR Plan of Treatment Health Maintenance Due Date Last Done Comments Hepatitis B Screening 1973 Covid-19 Vaccine (7 2023- 5 season) 2024 05/02/2023, 03/29/2022, 11/17/2021, Additional [...] a test for HCV RNA (test code 48099) is suggested. For additional information please refer to http://education.[employer]/faq/DQG85u8 (This link is being provided for informational/ educational purposes only.) 11/22/2022 7:24 AM CDT 11/22/2022 7:27 AM CDT Narrative [facility] - 11/23/2022 6:23 AM CDT FASTING:YES FASTING: YES Petar Mckeon MD LAB MICROBIOLOGY - GENERA L ORDERABLES Final Result Performing Organization Address [facility]/ZIP Co de Phone Number [facility] [place] [address] [place] [address] * COLONOSCOPY (02/02/2022) Scribed Colonoscopy Normal Comment:see media Mike Cid MD HEALTH MAINTENANCE Final Result * PSA screen (10/19/2021 7:08 AM CDT) PSA 0.39 < OR = 4.00 ng/mL [employer] [facility] Comment: The total PSA value from [...] ORDERABLES Final Res ult Performing Organization Address [facility] Co de Phone Number [facility] [place] [address] [place] [address] from Last 3 Months or Most Recently Relevant to Health Maintenance Insurance [employer] [facility] MEDICARE ADVANTAGE [facility] MEDICARE ADVANTAGE Care Teams Home Health Manager Relationship Specialty Start Date End Date Maricel Saucedo MD PCP - General Family Medicine 10/10/23 Bernardo Vargas MD [address] [place] [address] Radiation Oncology 10/10/23
[2024-10-01 11:13] LABS: Prostate Specific Antigen 0.9 ng/mL (< OR = 4.0)
== END 2024-10-01 09:51 | disposition home or self-care (01) ==
LOC: ANHLAB 09:52
PROVIDERS: Visit Provider Radiology Radiation Oncology
DX: Z85.46 Personal history of malignant neoplasm of prostate (principal); Z12.5 Encounter for screening for malignant neoplasm of prostate
CPT/HCPCS: 36415; 84153; G0103